=== PATIENT | female | born 1970 | race Caucasian/White ===

== ENCOUNTER 2016-10-22 15:03 | Emergency (ER) | payer MEDICARE ==
[~2016-10-22] VITALS: Ht 157.5 cm; Wt 123.7 kg
[~2016-10-22 15:03] MED LIST: ALBU18HF IH; ALPR1TAB2 PO; ASPI-630 PO; ATOR40TA59 PO; BISO5TAB2 PO; BUPR100T6 PO; CYAN10002 IM; DILT240C2 PO; FISH12002 PO; FLUT16SP21 NS; FLUT1DIS IH; GLIM1TAB PO; HYDROCORTISONE AD; LEVO125T5 PO; LEVO1TBD5 PO; LIDO700A4 TP; LORA10TA3 PO; MELO15TA23 PO; METF10002 PO; METH-37 PO; NEOMYCIN AD; OXYB5TAB7 PO; OXYC10TA PO; PANT40TA3 PO; PARO40TA3 PO; POLYMYXIN B AD
[2016-10-22 15:41] LABS: BASO # 0.1 x10^3/uL (0.0-0.2); BASO % 1 % (0-3); EOS # 0.1 x10^3/uL (0.0-0.7); EOS % 1 % (0-3); HEMATOCRIT 38.6 % (36.0-47.0); HEMOGLOBIN 13.1 g/dL (12.0-15.5); LYMPH # 2.9 x10^3/uL (1.0-4.8); LYMPH % 30 % (24-48); MEAN CORPUSCULAR HEMOGLOBIN 30 pg (25-35); MEAN CORPUSCULAR HGB CONC 34 g/dL (31-37); MEAN CORPUSCULAR VOLUME 89 fL (79-100); MONO # 0.4 x10^3/uL (0.0-1.1); MONO % 4 % (0-9); NEUT # 6.4 x10^3uL (1.8-7.7); NEUT % 65 % (31-73); PLATELET COUNT 379 x10^3/uL (140-400); RED BLOOD COUNT 4.36 x10^6/uL (3.50-5.40); RED CELL DISTRIBUTION WIDTH 13.3 % (11.5-14.5); WHITE BLOOD COUNT 9.9 x10^3/uL (4.0-11.0)
[2016-10-22 15:45] LABS: CALCIUM 8.6 mg/dL (8.5-10.1); CREATININE 0.5 mg/dL (0.6-1.0); GFR 132.2; POTASSIUM 3.4 mmol/L (3.5-5.1)
--- NOTE | 2016-10-22 16:37 | PHYS DOC ---
Past History Past Medical History: Anxiety, Asthma, Diabetes, GERD, High Cholesterol, Hypothyroid, Other Past Surgical History: Other Alcohol Use: None Drug Use: None Adult General Chief Complaint Chief Complaint: WOUND CHECK HPI HPI 46-year-old female presenting to the emergency department today after accidentally getting wedged in the toilet seat during transfer from her wheelchair to the toilet seat. After getting stuck she called paramedics. On arrival they saw small amount of blood on the seat and was concerned so they had her brought down here for medical evaluation. The patient did not fall she does not have any pain. She does not have a history of GI bleeding. She does have sores on her bottom that she believes probably caused this blood that the paramedics saw. Onset today. Location generalized. Duration intermittent. No alleviating or exacerbating factors. No specific timing. Review of systems was negative for chest pain shortness of breath abdominal pain nausea vomiting diarrhea. She denies fevers or chills. Pertinent physical exam findings showed a nontoxic normal-appearing individual. On evaluation the patient's buttocks there is chronic wound in the buttocks region from poor hygiene likely contact dermatitis. There is mild bleeding from this. Otherwise the patient's extremities are nontender head is atraumatic neck is nontender. Normal range of motion of the neck. ED course: 46-year-old female presenting to the emergency department today after getting stuck trying to get on the toilet seat. Vital signs afebrile normal blood pressure normal heart rate. Patient is well-appearing. Pertinent physical exam strong no traumatic injury. Bleeding likely secondary to her contact dermatitis from poor hygiene. Abdomen is soft and nontender. I recommended the patient follow up with her doctor over the next day or 2 or to return to the emergency department for worsening symptoms. They were to return if their symptoms worsened or if they were concerned for any reason. Face-to- face discharge instructions and return precautions were given. Patient's questions were answered to their satisfaction. Patient is comfortable plan. Review of Systems Review of Systems Constitutional: Denies fever or chills [] Eyes: Denies change in visual acuity, redness, or eye pain [] HENT: Denies nasal congestion or sore throat [] Respiratory: Denies cough or shortness of breath [] Cardiovascular: No additional information not addressed in HPI [] GI: Denies abdominal pain, nausea, vomiting, bloody stools or diarrhea [] : Denies dysuria or hematuria [] Musculoskeletal: Denies back pain or joint pain [] Integument: Denies rash or skin lesions [] Neurologic: Denies headache, focal weakness or sensory changes [] Endocrine: Denies polyuria or polydipsia [] Allergies Allergies Allergies Coded Allergies Type Severity Reaction Last Updated Verified Beta-Blockers (Beta-Adrenergic Bloc Allergy Intermediate Unknown 04/01/16 Yes Sulfa (Sulfonamide Antibiotics) Allergy Intermediate Unknown 04/01/16 Yes carbamazepine Allergy Intermediate Unknown 04/01/16 Yes ciprofloxacin Allergy Intermediate Unknown 04/01/16 Yes diphenhydramine Allergy Intermediate Unknown 08/24/15 Yes perflutren Allergy Intermediate Unknown 08/24/15 Yes tioconazole Allergy Intermediate Unknown 08/24/15 Yes vancomycin Allergy Unknown 03/27/16 Yes Physical Exam Physical Exam Constitutional: Well developed, well nourished, no acute distress, non-toxic appearance. HENT: Normocephalic, atraumatic, bilateral external ears normal, oropharynx moist, no oral exudates, nose normal. [] Eyes: PERRLA, EOMI, conjunctiva normal, no discharge. [] Neck: Normal range of motion, no tenderness, supple, no stridor. Cardiovascular:Heart rate regular rhythm, no murmur [] Lungs & Thorax: Bilateral breath sounds clear to auscultation Abdomen: Soft nontender abdomen without rebound tenderness or guarding present. Negative McBurneys point. Negative Degroot sign. No ecchymosis present. Skin: See above Back: No tenderness, no CVA tenderness. [] Extremities: No tenderness, no cyanosis, no clubbing, ROM intact, no edema. [] Neurologic: Alert and oriented X 3, normal motor function, normal sensory function, no focal deficits noted. Psychologic: Affect normal, judgement normal, mood normal. [] Current Patient Data Vital Signs Vital Signs Date Time Temp Pulse Resp B/P (MAP) Pulse Ox O2 Delivery O2 Flow Rate FiO2 10/22/16 15:10 98.3 89 19 97 Room Air Lab Results Laboratory Tests Test 10/22/16 15:28 White Blood Count 9.9 x10^3/uL (4.0-11.0) Red Blood Count 4.36 x10^6/uL (3.50-5.40) Hemoglobin 13.1 g/dL (12.0-15.5) Hematocrit 38.6 % (36.0-47.0) Mean Corpuscular Volume 89 fL (79-100) Mean Corpuscular Hemoglobin 30 pg (25-35) Mean Corpuscular Hemoglobin Concent 34 g/dL (31-37) Red Cell Distribution Width 13.3 % (11.5-14.5) Platelet Count 379 x10^3/uL (140-400) Neutrophils (%) (Auto) 65 % (31-73) Lymphocytes (%) (Auto) 30 % (24-48) Monocytes (%) (Auto) 4 % (0-9) Eosinophils (%) (Auto) 1 % (0-3) Basophils (%) (Auto) 1 % (0-3) Neutrophils # (Auto) 6.4 x10^3uL (1.8-7.7) Lymphocytes # (Auto) 2.9 x10^3/uL (1.0-4.8) Monocytes # (Auto) 0.4 x10^3/uL (0.0-1.1) Eosinophils # (Auto) 0.1 x10^3/uL (0.0-0.7) Basophils # (Auto) 0.1 x10^3/uL (0.0-0.2) Maternal Serum HCG Beta Subunit 1 mIU/mL (0-6) Sodium Level 141 mmol/L (136-145) Potassium Level 3.4 mmol/L (3.5-5.1) L Chloride Level 104 mmol/L (98-107) Carbon Dioxide Level 25 mmol/L (21-32) Anion Gap 12 (6-14) Blood Urea Nitrogen 17 mg/dL (7-20) Creatinine 0.5 mg/dL (0.6-1.0) L Estimated GFR (Cockcroft-Gault) 132.2 Glucose Level 173 mg/dL (70-99) H Calcium Level 8.6 mg/dL (8.5-10.1) EKG EKG [] Radiology/Procedures Radiology/Procedures [] Course & Med Decision Making Course & Med Decision Making Pertinent Labs and Imaging studies reviewed. (See chart for details) [] Dragon Disclaimer Dragon Disclaimer This chart was dictated in whole or in part using Voice Recognition software in a busy, high-work load, and often noisy Emergency Department environment. It may contain unintended and wholly unrecognized errors or omissions. Departure Departure: Impression: Primary Impression: Contact dermatitis Disposition: 01 HOME, SELF-CARE Condition: STABLE Referrals: LAVERNE REAVES MD (PCP) Patient Instructions: Contact Dermatitis, [id number] Additional Instructions: Thank you for allowing us to participate in your care today. Followup with your primary care physician in 3 days if your symptoms do not improve. If you do not have a primary care provider you can ask for a list of our primary care providers. Return to the emergency department you have any new or concerning findings. This should be evaluated by the primary care physician and any necessary consulting services for continued management within a few days after discharge. Return to emergency room if you have any new or concerning symptoms including but not limited to fever, chills, nausea, vomiting, intractable pain, any new rashes, chest pain, shortness of air, uncontrolled bleeding, difficulty breathing, and/or vision loss. DANE JORDAN MD October 22, 2016 16:37
[2016-10-22 17:00] VITALS: BP 136/72
== END 2016-10-22 17:13 | disposition home or self-care (01) ==
LOC: ER 15:03
DX: L25.9 Unspecified contact dermatitis, unspecified cause (principal); E11.9 Type 2 diabetes mellitus without complications; J45.909 Unspecified asthma, uncomplicated; E78.00 Pure hypercholesterolemia, unspecified; E03.9 Hypothyroidism, unspecified; K21.9 Gastro-esophageal reflux disease without esophagitis; Z88.1 Allergy status to other antibiotic agents; Z88.2 Allergy status to sulfonamides; Z88.8 Allergy status to other drugs, medicaments and biological substances
CPT/HCPCS: 36415; 80048; 84702; 85027; 99284

== ENCOUNTER 2016-12-16 11:18 | Emergency (ER) | payer MEDICARE ==
[~2016-12-16] VITALS: Ht 157.5 cm; Wt 121.6 kg
--- NOTE | 2016-12-16 11:57 | PHYS DOC ---
General Chief Complaint: MECHANICAL FALL Stated Complaint: FALL Time Seen by MD: 11:20 Source: patient, EMS, old records Exam Limitations: no limitations Problems: History of Present Illness Initial Comments Patient is a 46-year-old female brought to the emergency department with her service dog by EMS initially due to a fall and related possible injuries. When she is in the department she does have other issues should like to discuss as follows: -Fall out of bed with right rib pain: Patient states that she has incontinence issues and she keeps pads on her bed. She says sometimes they slide across one another and that is what happened this morning. Immediately prior to arrival she says she slid off the edge of the bed landing on a wood floor on her right rib cage. She denies right hip or right shoulder pain she also denies head trauma loss of consciousness headache or neck pain. She localizes the discomfort to the right lateral rib cage in general denies associated difficulty breathing. Pain is diffuse she cannot localize any bony point tenderness. -Asthma: Pt moved residences recently, her caregiver busy today and pt could not find her neb machine. With the increased humidity and ask her asthma symptoms have flared somewhat and she's had mild nighttime nonproductive cough. No shortness of breath or dyspnea on exertion she's been using inhalers and thinks she has someone to help her find the nebulizer later today. -Itching: Pt has h/o bullous pemphigous, states when symptoms flare she itches initially. She is certain that is cause for her itching, denies new meds/ products exposures. No face/throat swelling. Complains of whole body itching, she refuses Benadryl as she says it makes her crazy but steroids typically resolve these symptoms. Timing/Duration: 1 hour Severity: moderate Modifying Factors: worse with movement, improves with rest Associated Symptoms: cough, malaise, other Allergies: Coded Allergies: Beta-Blockers (Beta-Adrenergic Bloc (Verified Allergy, Intermediate, Unknown, 04/01/16) Sulfa (Sulfonamide Antibiotics) (Verified Allergy, Intermediate, Unknown, 04/01/16) carbamazepine (Verified Allergy, Intermediate, Unknown, 04/01/16) ciprofloxacin (Verified Allergy, Intermediate, Unknown, 04/01/16) diphenhydramine (Verified Allergy, Intermediate, Unknown, 08/24/15) perflutren (Verified Allergy, Intermediate, Unknown, 08/24/15) tioconazole (Verified Allergy, Intermediate, Unknown, 08/24/15) vancomycin (Verified Allergy, Unknown, 03/27/16) Past Medical History Medical History: other (anxiety, asthma, diabetes, GERD, hyperlipidemia, hypothyroidism, cerebral palsy, bullous pemphigus, PSVT, obstructive sleep apnea , chronic pain) Surgical History: noncontributory Family History Significant Family History: no pertinent family hx Social History Smoker: non-smoker Alcohol: none Drugs: none Review of Systems Constitutional: denies chills, denies diaphoresis, denies fever, denies malaise Respiratory: cough, denies shortness of breath, wheezing Cardiovascular: denies chest pain, denies palpitations, denies syncope Gastrointestinal: denies abdominal pain, denies diarrhea, denies nausea, denies vomiting Genitourinary: denies dysuria, denies frequency, denies hematuria Musculoskeletal: see HPI, denies back pain, denies joint swelling, denies neck pain Psychiatric/Neurological: see HPI, denies headache, denies paresthesia, denies pre-existing deficit, denies seizure Hematologic/Lymphatic: denies blood clots, denies easy bleeding, denies easy bruising Physical Exam General Appearance: no apparent distress, obese Eyes: bilateral eye normal inspection, bilateral eye PERRL, bilateral eye EOMI Ear, Nose, Throat: hearing grossly normal, normal ENT inspection, normal pharynx (head is normocephalic atraumatic), other (no oral pharyngeal soft tissue swelling the airway is patent) Neck: non-tender, full range of motion, supple Respiratory: normal breath sounds, no respiratory distress, other (mild diffuse right sided rib cage tenderness without focality, no focal bony point tenderness, no paradoxical movement, swelling or ecchymosis.) Cardiovascular: normal peripheral pulses, regular rate, rhythm Gastrointestinal: non tender, soft Back: no CVA tenderness, no vertebral tenderness Extremities: non-tender, normal inspection Neurologic/Psychiatric: principal developer II-XII nml as tested, no motor/sensory deficits, alert, normal mood/affect, oriented x 3 Skin: normal color, warm/dry Orders, Labs, Meds PATIENT: CHANDLER CHEATHAM ACCOUNT: [id number] : 1970 LOCATION: ER AGE: 46 SEX: F EXAM STATUS: REG ER ORD. PHYSICIAN: MI ISLAS DO REASON: fall, right rib pain PROCEDURE: RIBS RIGHT AND PA CHEST RIBS RIGHT AND PA CHEST Clinical Indication: fall, right rib pain Comparison: Chest radiograph dated 01/26/2016 Findings: The patient rotated to the right. Low lung volume. No focal consolidations. Normal pulmonary vasculature. No pleural effusion or pneumothorax. The cardiomediastinal silhouette is normal. The great vessels of the thorax are normal. No acute osseous abnormality. No displaced rib fracture. IMPRESSION: 1. No acute cardiopulmonary process. 2. No displaced rib fracture. DICTATED AND SIGNED BY: YAJAIRA PAREDES MD DATE: 12/16/16 [id number] CC: LAVERNE NUÑEZ MD; MI ISLAS DO ~ I discussed x-ray findings with the patient. She has no new or changing symptoms and has a friend coming to help her locate her nebulizer at home. Her itching is improved with Solu-Medrol and she is ready to go home. The treatment plan was discussed with her and her questions were answered. Departure Time of Disposition: 12:45 Disposition: 01 HOME, SELF-CARE Diagnosis: fall, chest contusion, bullous pemphigus Condition: GOOD Patient Instructions: Chest Contusion, [id number], Fall Prevention and Home Safety, [id number], RICE - Routine Care for Injuries, [id number] Additional Instructions: RICE, see handout. Rest, activity as tolerated. Begin using home nebulizer/meds as prescribed. Continue current meds. Avoid heat to reduce itching. Rx: prednisone Follow up with Dr Nuñez this week as discussed. Return to ED with new or changing symptoms. MI ISLAS DO Dec 16, 2016 11:57
[2016-12-16] MEDS ORDERED: IPRATRPIUM/ALBUTEROL 0.5/2.5MG 3 ML NEBU. NEB ONE (12:10)
[2016-12-16] MEDS ORDERED: methylPREDNISolone SOD SUCC PF 125 MG/2 ML VIAL. IM ONE (12:10)
--- NOTE | 2016-12-16 12:41 | RAD ---
RIBS RIGHT AND PA CHEST Clinical Indication: fall, right rib pain Comparison: Chest radiograph dated 01/26/2016 Findings: The patient rotated to the right. Low lung volume. No focal consolidations. Normal pulmonary vasculature. No pleural effusion or pneumothorax. The cardiomediastinal silhouette is normal. The great vessels of the thorax are normal. No acute osseous abnormality. No displaced rib fracture. IMPRESSION: 1. No acute cardiopulmonary process. 2. No displaced rib fracture.
[2016-12-16 13:09] VITALS: BP 132/100
== END 2016-12-16 13:10 | disposition home or self-care (01) ==
LOC: ER 11:18
DX: S20.211A Contusion of right front wall of thorax, initial encounter (principal); L10.89 Other pemphigus; E11.9 Type 2 diabetes mellitus without complications; J45.909 Unspecified asthma, uncomplicated; K21.9 Gastro-esophageal reflux disease without esophagitis; E78.5 Hyperlipidemia, unspecified; E03.9 Hypothyroidism, unspecified; G80.9 Cerebral palsy, unspecified; G47.33 Obstructive sleep apnea (adult) (pediatric); G89.29 Other chronic pain; Z88.2 Allergy status to sulfonamides; Z88.1 Allergy status to other antibiotic agents; Z88.8 Allergy status to other drugs, medicaments and biological substances; W06.XXXA Fall from bed, initial encounter; Y93.89 Activity, other specified; Y99.8 Other external cause status; Y92.89 Other specified places as the place of occurrence of the external cause
CPT/HCPCS: 71101; 94640; 96372; 99284; J2930; J7620

== ENCOUNTER 2017-02-04 17:58 | Inpatient (IN) | payer MEDICARE ==
[~2017-02-04] VITALS: Ht 157.5 cm; Wt 121.6 kg
--- NOTE | 2017-02-04 18:36 | ED.ADGEN ---
Past History Past Medical History: Anemia, Anxiety, Asthma, Depression, Diabetes, GERD, High Cholesterol, Hypothyroid, Other Past Surgical History: Other Alcohol Use: None Drug Use: None Adult General Chief Complaint Chief Complaint pain in mid back and lumbar back after fall HPI HPI Patient is a 46] year old [female who presents with pain in mid back and lumbar back after fall. she has cerebral palsy and has been getting weaker. she transfers on her own. she fell to her buttock when she fell. she felt like her back "got abby". she has multiple bulging disks in her back. she is to start physical therapy and rehab tomorrow. she has not been ill. no n/v/d. no dysuria, no fever. she has called fire out twice each day to help her get back in chair. Review of Systems Review of Systems Constitutional: Denies fever or chills [] Eyes: Denies change in visual acuity, redness, or eye pain [] HENT: Denies nasal congestion or sore throat [] Respiratory: Denies cough or shortness of breath [] Cardiovascular: No additional information not addressed in HPI [] GI: Denies abdominal pain, nausea, vomiting, bloody stools or diarrhea [] : Denies dysuria or hematuria [] Musculoskeletal: Denies back pain or joint pain [] Integument: Denies rash or skin lesions [] Neurologic: Denies headache, focal weakness or sensory changes [] Endocrine: Denies polyuria or polydipsia [] Current Medications Current Medications Current Medications Medications (Trade) Dose Ordered Sig/Daniel Start Time Stop Time Status Last Admin Dose Admin Fentanyl Citrate (Fentanyl 2ml Vial) 50 mcg PRN Q2HR PRN 02/04/17 21:30 02/05/17 21:29 Allergies Allergies Allergies Coded Allergies Type Severity Reaction Last Updated Verified Beta-Blockers (Beta-Adrenergic Bloc Allergy Intermediate Unknown 04/01/16 Yes Sulfa (Sulfonamide Antibiotics) Allergy Intermediate Unknown 04/01/16 Yes carbamazepine Allergy Intermediate Unknown 04/01/16 Yes ciprofloxacin Allergy Intermediate Unknown 04/01/16 Yes diphenhydramine Allergy Intermediate Unknown 08/24/15 Yes perflutren Allergy Intermediate Unknown 08/24/15 Yes tioconazole Allergy Intermediate Unknown 08/24/15 Yes vancomycin Allergy Unknown 03/27/16 Yes Physical Exam Physical Exam Constitutional: Well developed, well nourished, no acute distress, non-toxic appearance. [] HENT: Normocephalic, atraumatic, bilateral external ears normal, oropharynx moist, no oral exudates, nose normal. [] Eyes: PERRLA, EOMI, conjunctiva normal, no discharge. [] Neck: Normal range of motion, no tenderness, supple, no stridor. [] Cardiovascular:Heart rate regular rhythm, no murmur [] Lungs & Thorax: Bilateral breath sounds clear to auscultation [] Abdomen: Bowel sounds normal, soft, no tenderness, no masses, no pulsatile masses. [] Skin: Warm, dry, no erythema, no rash. [] Back: tender thoracic at t6-t8, entire lumbar spine. Extremities: No tenderness, no cyanosis, no clubbing, pt has abrasions to bilat patellas.no crepitus palpated. minimal movement to bilat LE due to CP, some movement to RUE, this is baseline. full ROM of LUE without pain Neurologic: Alert and oriented X 3, baseline motor function Psychologic: Affect normal, judgement normal, mood normal. [] Current Patient Data Vital Signs Vital Signs Date Time Temp Pulse Resp B/P (MAP) Pulse Ox O2 Delivery O2 Flow Rate FiO2 02/04/17 18:00 98.2 78 18 99 Room Air Lab Results Laboratory Tests Test 02/04/17 20:52 White Blood Count 10.5 x10^3/uL (4.0-11.0) Red Blood Count 4.42 x10^6/uL (3.50-5.40) Hemoglobin 13.2 g/dL (12.0-15.5) Hematocrit 39.4 % (36.0-47.0) Mean Corpuscular Volume 89 fL (79-100) Mean Corpuscular Hemoglobin 30 pg (25-35) Mean Corpuscular Hemoglobin Concent 34 g/dL (31-37) Red Cell Distribution Width 13.7 % (11.5-14.5) Platelet Count 338 x10^3/uL (140-400) Neutrophils (%) (Auto) 64 % (31-73) Lymphocytes (%) (Auto) 29 % (24-48) Monocytes (%) (Auto) 4 % (0-9) Eosinophils (%) (Auto) 2 % (0-3) Basophils (%) (Auto) 1 % (0-3) Neutrophils # (Auto) 6.8 x10^3uL (1.8-7.7) Lymphocytes # (Auto) 3.0 x10^3/uL (1.0-4.8) Monocytes # (Auto) 0.5 x10^3/uL (0.0-1.1) Eosinophils # (Auto) 0.2 x10^3/uL (0.0-0.7) Basophils # (Auto) 0.1 x10^3/uL (0.0-0.2) Sodium Level 140 mmol/L (136-145) Potassium Level 3.5 mmol/L (3.5-5.1) Chloride Level 104 mmol/L (98-107) Carbon Dioxide Level 27 mmol/L (21-32) Anion Gap 9 (6-14) Blood Urea Nitrogen 9 mg/dL (7-20) Creatinine 0.7 mg/dL (0.6-1.0) Estimated GFR (Cockcroft-Gault) 89.7 BUN/Creatinine Ratio 13 (6-20) Glucose Level 99 mg/dL (70-99) Calcium Level 9.5 mg/dL (8.5-10.1) Total Bilirubin 0.7 mg/dL (0.2-1.0) Aspartate Amino Transferase (AST) 87 U/L (15-37) H Alanine Aminotransferase (ALT) 87 U/L (14-59) H Alkaline Phosphatase 78 U/L (46-116) Total Protein 6.9 g/dL (6.4-8.2) Albumin 3.5 g/dL (3.4-5.0) Albumin/Globulin Ratio 1.0 (1.0-1.7) EKG EKG [] Radiology/Procedures Radiology/Procedures CT T and L spine are neg for fracture[] Course & Med Decision Making Course & Med Decision Making Pertinent Labs and Imaging studies reviewed. (See chart for details) Pt and her nurse feel she is too weak to manage transfers on her own at home. pt is obese and her nurse helps her. pt lives alone. she is to be admitted to [facility] on . will admit until she can transfer to rehab Final Impression Final Impression weakness multiple falls patellar abrasions inability to care for self[] Problems: Dragon Disclaimer Dragon Disclaimer This electronic medical record was generated, in whole or in part, using a voice recognition dictation system. KATHRYN MOULTON MD Feb 04, 2017 18:36
--- NOTE | 2017-02-04 19:35 | RAD ---
CT scan of the lumbar spine without contrast 02/04/2017 CLINICAL HISTORY: Low back pain after fall from bed. Technique: Unenhanced, contiguous, 0.625 mm axial sections were obtained through the lumbar spine. 3 mm reconstructed sagittal, axial and coronal images were obtained. One or more of the following individualized dose reduction techniques were utilized for this study: 1. Automated exposure control. 2. Adjustment of the mA and/or kV according to patient size. 3. Use of iterative reconstruction technique. FINDINGS: Very mild S-shaped curvature of the thoracolumbar spine is seen on the sagittal and coronal reconstructed images. Degenerative changes consisting of disc space narrowing, vacuum disc phenomenon, subchondral sclerosis and mild to moderate anterior and posterior vertebral body osteophyte formation are seen involving predominantly the L4-5 and L5-S1 disc spaces. Mild atherosclerotic calcification of the abdominal aorta is seen. No fracture or subluxation of the lumbar vertebrae seen. The changes of degenerative disc disease are seen involving the lumbar spine. These consist of mild to moderate generalized disc bulges, degenerative changes involving the facet joints and mild to moderate ligamentum flavum hypertrophy. These findings results in mild central spinal canal stenosis with mild to moderate bilateral neural foraminal stenosis at L4-5 and mild to moderate left greater than right neural foraminal stenosis at L5-S1. IMPRESSION: No fracture or subluxation of the lumbar vertebrae is seen. Electronically signed by: Jaspal Andrade MD (02/04/2017 7:33 PM) [id number]
--- NOTE | 2017-02-04 20:02 | RAD ---
CT scan of the thoracic spine without contrast 02/04/2017 CLINICAL HISTORY: Mid back pain post fall from bed. TECHNIQUE: Unenhanced, contiguous, 0.625 mm axial sections were obtained through the thoracic spine. 3 mm reconstructed sagittal and coronal and 2 mm reconstructed axial images of the thoracic spine were obtained. One or more of the following individualized dose reduction techniques were utilized for this study: 1. Automated exposure control. 2. Adjustment of the mA and/or kV according to patient size. 3. Use of iterative reconstruction technique. FINDINGS: Sagittal and coronal reconstructed images demonstrate very mild S-shaped curvature of the thoracolumbar spine. Degenerative changes are seen throughout the thoracic disc spaces consisting of varying degrees of disc space narrowing, vertebral endplate sclerosis and mild to moderate anterior vertebral body osteophyte formation along with degenerative changes involving the facet joints. No fracture or subluxation of the thoracic vertebrae is seen. IMPRESSION: No fracture or subluxation of the thoracic vertebrae is seen. Electronically signed by: Jaspal Andrade MD (02/04/2017 7:59 PM) [id number]
[2017-02-04 21:27] LABS: BASO # 0.1 x10^3/uL (0.0-0.2); BASO % 1 % (0-3); EOS # 0.2 x10^3/uL (0.0-0.7); EOS % 2 % (0-3); HEMATOCRIT 39.4 % (36.0-47.0); HEMOGLOBIN 13.2 g/dL (12.0-15.5); LYMPH % 29 % (24-48); MEAN CORPUSCULAR HEMOGLOBIN 30 pg (25-35); MEAN CORPUSCULAR HGB CONC 34 g/dL (31-37); MEAN CORPUSCULAR VOLUME 89 fL (79-100); MONO # 0.5 x10^3/uL (0.0-1.1); MONO % 4 % (0-9); NEUT # 6.8 x10^3uL (1.8-7.7); NEUT % 64 % (31-73); PLATELET COUNT 338 x10^3/uL (140-400); RED BLOOD COUNT 4.42 x10^6/uL (3.50-5.40); RED CELL DISTRIBUTION WIDTH 13.7 % (11.5-14.5); WHITE BLOOD COUNT 10.5 x10^3/uL (4.0-11.0)
[2017-02-04] MEDS ORDERED: fentaNYL PF 100 MCG/2 ML VIAL IV PRN (21:30)
[2017-02-04 21:34] LABS: ALBUMIN 3.5 g/dL (3.4-5.0); CALCIUM 9.5 mg/dL (8.5-10.1); CREATININE 0.7 mg/dL (0.6-1.0); GFR 89.7; POTASSIUM 3.5 mmol/L (3.5-5.1); TOTAL BILIRUBIN 0.7 mg/dL (0.2-1.0); TOTAL PROTEIN 6.9 g/dL (6.4-8.2)
[2017-02-04] MEDS ORDERED: fentaNYL PF 100 MCG/2 ML VIAL IM PRN (22:45)
[2017-02-04 22:53] LABS: BILIRUBIN,URINE NEG (NEG); CLARITY,URINE HAZY; COLOR,URINE YELLOW; GLUCOSE,URINE NEG (NEG)
[2017-02-04 22:54] LABS: BACTERIA,URINE MANY /HPF (0-FEW); NITRITE,URINE POS (NEG); RBC,URINE 0 /HPF (0-2); SQUAMOUS EPITHELIAL CELL,UR OCC /LPF; UROBILINOGEN,URINE 0.2 mg/dL (0.2 mg/dL)
[2017-02-04] MEDS ORDERED: cefTRIAXone IM 1 GM VIAL IM ONE (23:30)
[2017-02-04 23:45] VITALS: BP 150/86
[2017-02-05] MEDS: oxyCODONE ER 10 MG TAB.ER.12H PO PRN ×2 (00:54→12:19)
[2017-02-05] MEDS: METHOCARBAMOL 500 MG TABLET PO PRN ×2 (03:03→20:42)
[2017-02-05 06:10] VITALS: BP 141/87
[2017-02-05] MEDS ORDERED: DILT240C66 PO (13:21)
[2017-02-05] MEDS ORDERED: CARV6.252 PO (13:21)
[2017-02-05] MEDS ORDERED: PIOG30TA41 PO (13:21)
[2017-02-05] MEDS ORDERED: ALBUTEROL SULFATE 8GM INHALER. IH PRN (15:45)
[2017-02-05 15:55] VITALS: BP 143/90
[2017-02-05] MEDS ORDERED: ALBUTEROL SULFATE 2.5 MG/3 ML NEBU. NEB PRN (16:15)
[2017-02-05] MEDS: GLIMEPIRIDE 4 MG TABLET PO SCH (17:00)
[2017-02-05] MEDS: CARVEDILOL 6.25 MG TABLET PO SCH (17:06)
[2017-02-05] MEDS: metFORMIN 500 MG TABLET PO SCH (17:07)
--- NOTE | 2017-02-05 18:59 | HP ---
ADMIT DATE: 02/05/2017 HISTORY OF PRESENT ILLNESS: The patient is a 46-year-old female patient with cerebral palsy who was brought to the Emergency Room with a complaint of pain in the back and lumbar back after a fall. She apparently has cerebral palsy and has been getting weaker. She transferred on her own and she fell onto her buttock and she felt like her back has got ____. She has multiple bulging disks in her back. She is to start physical therapy and rehab at [facility]; however, she has fallen about 11 times in the last few weeks and she has been so weak that she is unable to take care of herself and was admitted for pain management and hopefully transfer her to the [facility] [place]. The patient denied any other complaint and particularly denied any chills, rigors, or fever. Denied any nausea, vomiting and diarrhea. Denied any dysuria, frequency or hematuria. She has called the fire department twice yesterday to help her get back in her chair. She was evaluated in the Emergency Room and has had a CT scan of the thoracic and lumbar spine, showed no fracture or subluxation of the thoracic vertebra and no fracture or subluxation of her lumbar vertebrae seen and was admitted for pain management. PAST MEDICAL HISTORY: She has hyperlipidemia, hypertension, vitamin B12 deficiency, type 2 diabetes, hypothyroidism, overactive bladder, gastroesophageal reflux disease as well as bronchial asthma and obviously cerebral palsy. PAST SURGICAL HISTORY: Significant for multiple surgeries ____ within the age 1 and 7 and also in the year 1999. ALLERGIES: BETABLOCKER, SULFA, CARBAMAZEPINE, CIPROFLOXACIN. MEDICATIONS: She is currently on following medications: Albuterol sulfate 1 puff every 4-6 hours, alprazolam or Xanax 1 mg twice a day, aspirin 81 mg once a day, atorvastatin calcium 40 mg at bedtime, Wellbutrin 100 mg once a day, carvedilol 6.25 mg twice a day with meals, cyanocobalamin or vitamin B12 1000 mcg/mL intramuscular once a month. She is on diltiazem 240 mg once a day, Flonase 1 spray to each nostril twice a day, fluticasone/ salmeterol or Advair Diskus 500/50 one inhalation twice a day, glimepiride 4 mg b.i.d., levothyroxine sodium 250 mcg once a day, Lidoderm patch applied topically to the lower lumbar area on for 12 hours and off for 12, loratadine 10 mg once a day, meloxicam 15 mg once a day, metformin 1000 mg p.o. b.i.d., methocarbamol or Robaxin 1000 mg every 8 hours as needed, oxybutynin chloride 5 mg, she takes 2 tablets daily, oxycodone 10 mg 2 tablets twice a day, Protonix 40 mg once a day, paroxetine 40 mg once a day, and pioglitazone or Actos 30 mg once a day and hydrocortisone, neomycin, polymyxin 4 drops b.i.d. FAMILY HISTORY: She is the only child. Her mother at age of 63 due to complication of myasthenia gravis and bowel obstruction. She is estranged from her stepfather who is alive at age of 66 years. She does not know her biological father. SOCIAL HISTORY: She is single. She does not smoke. Drinks alcohol 6 times a year. 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 She has a caregiver that comes to the house, 3 hours per week. PHYSICAL EXAMINATION: GENERAL: On examining her, she was resting slightly propped up in bed, in no apparent respiratory distress, pale, but no jaundice, cyanosis, or thyromegaly. No jugular venous distention. No limb edema. VITAL SIGNS: His heart rate was 83, blood pressure was 113/71, temperature was 98.2, respiratory rate was 18 and oxygen saturation was 99% on room air. HEENT: Showed normocephalic, atraumatic. NECK: Supple. HEART: Showed normal first and second heart sounds with no gallop, rub or murmur. CHEST: Clear to auscultation. No crepitation or rhonchi. ABDOMEN: Distended, soft, nontender. NEUROLOGIC: She is awake, alert, responding appropriately. Cranial nerves intact. She is able to use her left upper extremity to much greater extent than the right upper extremity, which has fixed flexion deformity. She has paraplegia. She is mostly bed bound, wheelchair bound. LABORATORY DATA: On admission showed that her white cell count was 10,500, hemoglobin 13, hematocrit 39, MCV 89 and platelet count of 338,000 with normal manual differential. Her serum chemistry showed a serum sodium 140, potassium 3.5, chloride 104, bicarbonate 27, anion gap of 9, BUN 9, creatinine 0.7, estimated GFR was 90 mL per minute. Her glucose was 99, calcium was 9.5. Total bilirubin and alkaline phosphatase were normal. AST, ALT elevated. Her total protein was 6.9, albumin was 3.5. Her urinalysis showed the urine was yellow, hazy with a pH of 5.5, specific gravity 1.005. The urine was negative for protein, glucose, ketones, positive for nitrite. There is 1-4 WBCs and many bacteria. She did have a CT scan of the thoracic spine, which showed that she has ____ thoracolumbar spine degenerative changes are seen throughout the thoracic disk spaces consisting of varying degree of disk space narrowing, vertebral endplate sclerosis, mild to moderate anterior vertebral body osteophyte formation along with degenerative changes involving the facet joints and the same thing for the lumbar spine with no evidence of subluxation or fracture. ASSESSMENT AND PLAN: In summary, this is a 46-year-old female patient with cerebral palsy who has been falling multiple times. She has fallen about 11 times and patient was admitted for pain management and to eventually be admitted to [facility] on with the final impression of generalized weakness, multiple falls, patellar abrasions and inability to care for self. ALL LONG MD DR: THI/betzaida JOB#: [id number] / [id number]
[2017-02-05 20:29] VITALS: BP 115/76
[2017-02-05] MEDS: ALPRAZolam 0.5 MG TABLET PO SCH (20:42)
[2017-02-05] MEDS ORDERED: LIDOCAINE (700MG/PATCH) PATCH. TP SCH (21:00)
[2017-02-05] MEDS ORDERED: NON FORMULARY ITEM (Fluticasone/Salmeterol (Advair 100-50 Diskus) 1 EACH) IH SCH (21:00)
[2017-02-05] MEDS: BUDESONIDE 0.5 MG/2 ML NEBU NEB SCH (21:23)
[2017-02-05] MEDS: ALBUTEROL SULFATE 2.5 MG/3 ML NEBU. NEB SCH (21:23)
[2017-02-05 22:51] VITALS: BP 100/65
--- NOTE | 2017-02-06 04:38 | PN ---
DATE: 02/05/2017 SUBJECTIVE: The patient is resting slightly propped up in bed, in no apparent distress. She continued to have pain in her lower back; however, extensive imaging showed no evidence of subluxation or fracture. She has been weak and she is unable to care for herself and she is scheduled to be admitted tomorrow to [facility]. When I examined her today, she looked well and was clearly in no apparent respiratory distress. She was afebrile and hemodynamically stable. Her pain is well controlled. PLAN: I have reconciled all her medications. I will continue obviously with all her medications and will discharge her tomorrow to [facility]. ALL LONG MD DR: THI/betzaida JOB#: [id number] / [id number]
[2017-02-06] MEDS: oxyCODONE ER 10 MG TAB.ER.12H PO PRN (05:10)
[2017-02-06 05:55] VITALS: BP 127/77
[2017-02-06] MEDS ORDERED: LEVOTHYROXINE 125 MCG TABLET PO SCH (06:00)
[2017-02-06 06:51] LABS: BASO % 1 % (0-3); EOS # 0.2 x10^3/uL (0.0-0.7); EOS % 3 % (0-3); HEMATOCRIT 36.9 % (36.0-47.0); HEMOGLOBIN 12.4 g/dL (12.0-15.5); LYMPH % 41 % (24-48); MEAN CORPUSCULAR HEMOGLOBIN 30 pg (25-35); MEAN CORPUSCULAR HGB CONC 34 g/dL (31-37); MEAN CORPUSCULAR VOLUME 88 fL (79-100); MONO # 0.4 x10^3/uL (0.0-1.1); MONO % 6 % (0-9); NEUT # 3.6 x10^3uL (1.8-7.7); NEUT % 50 % (31-73); PLATELET COUNT 332 x10^3/uL (140-400); RED BLOOD COUNT 4.19 x10^6/uL (3.50-5.40); RED CELL DISTRIBUTION WIDTH 13.7 % (11.5-14.5); WHITE BLOOD COUNT 7.2 x10^3/uL (4.0-11.0)
[2017-02-06 07:04] LABS: ALBUMIN/GLOBULIN RATIO 0.9 (1.0-1.7); CALCIUM 9.2 mg/dL (8.5-10.1); CREATININE 0.6 mg/dL (0.6-1.0); GFR 107.2; POTASSIUM 3.4 mmol/L (3.5-5.1); TOTAL BILIRUBIN 0.5 mg/dL (0.2-1.0); TOTAL PROTEIN 6.4 g/dL (6.4-8.2)
[2017-02-06] MEDS ORDERED: OXYBUTYNIN CHLORIDE 5 MG TABLET PO SCH (09:00)
[2017-02-06] MEDS ORDERED: PANTOPRAZOLE 40 MG TABLET. PO SCH (09:00)
[2017-02-06] MEDS ORDERED: buPROPion 100 MG TABLET PO SCH (09:00)
[2017-02-06] MEDS ORDERED: FLUTICASONE 50MCG/NASAL SPRAY 16GM BOTTLE. NS SCH (09:00)
[2017-02-06] MEDS ORDERED: ATORVASTATIN CALCIUM 20 MG TABLET PO SCH (09:00)
[2017-02-06] MEDS ORDERED: PARoxetine 20 MG TABLET PO SCH (09:00)
[2017-02-06] MEDS ORDERED: CETIRIZINE HCL 10 MG TABLET PO SCH (09:00)
[2017-02-06] MEDS ORDERED: PIOGLITAZONE 15 MG TABLET. PO SCH (09:00)
[2017-02-06] MEDS ORDERED: ASPIRIN 81 MG TAB.CHEW PO SCH (09:00)
[2017-02-06] MEDS ORDERED: MELOXICAM 15 MG TABLET. PO SCH (09:00)
[2017-02-06] MEDS: CARVEDILOL 6.25 MG TABLET PO SCH (10:40)
[2017-02-06] MEDS: GLIMEPIRIDE 4 MG TABLET PO SCH (10:43)
[2017-02-06] MEDS: metFORMIN 500 MG TABLET PO SCH (10:44)
[2017-02-06] MEDS: ALPRAZolam 0.5 MG TABLET PO SCH (10:45)
[2017-02-06] MEDS: METHOCARBAMOL 500 MG TABLET PO PRN (10:53)
[2017-02-06 11:03] VITALS: BP 100/65
[2017-02-06] MEDS: BUDESONIDE 0.5 MG/2 ML NEBU NEB SCH (11:50)
[2017-02-06] MEDS: ALBUTEROL SULFATE 2.5 MG/3 ML NEBU. NEB SCH ×2 (11:50→11:51)
[2017-02-06 21:11] LABS: HEMOGLOBIN A1C 7.3 % (4.8-5.6)
--- NOTE | 2017-02-06 22:22 | DS ---
DATE OF DISCHARGE: 02/06/2017 HOSPITAL COURSE: The patient is a 46-year-old female patient who was admitted through the Emergency Room with a complaint of pain in her lower back after a fall. She apparently has cerebral palsy and has been getting weaker. She normally transferred on her own and she fell onto her buttock and she felt like her back has got abby. She has multiple bulging disks in her back. She was supposed to start physical therapy and rehabilitation at [facility]; however, she has fallen about 11 times in the last 2 weeks and has been so weak that she is unable to take care of herself and was admitted for pain management and hopefully transfer her to [facility] once she is accepted. She did actually very well. The CT scan of her thoracic and lumbar spine showed no evidence of fracture. Her pain is much better controlled. She was in fact accepted today at [facility] and will be discharged there to continue the course of physical and occupational therapy. On questioning her today, she stated that her pain is much better controlled. Denied any other complaint. PHYSICAL EXAMINATION: GENERAL: When I examined her, she was pale, but no jaundice, cyanosis, or thyromegaly. No jugular venous distention. No limb edema. VITAL SIGNS: Her heart rate was 82, blood pressure was 100/65, temperature was 98.4, respiratory rate 20, and oxygen saturation was 95% on room air. HEAD, EYES, EARS, NOSE, AND THROAT: Showed normocephalic, atraumatic. NECK: Supple. HEART: Showed normal first and second sounds with no gallop, rub, or murmur. CHEST: Clear to auscultation. No crepitation or rhonchi. ABDOMEN: Distended, soft, nontender. No guarding or rigidity. No organomegaly. All hernial orifices intact. Bowel sounds normal. NEUROLOGIC: She was awake, alert, responding appropriately. Cranial nerves intact. She has paraplegia with marked muscle wasting and fixed flexion contracture. She is able to use her left upper extremity to much good extent than her right upper extremity due to fixed flexion contracture of her fingers. She is mostly bed bound, wheelchair bound. Her intake over the last 24 hours was 1020, output was 200. Her lab work as of this morning showed a white cell count 7200, hemoglobin 12.4, hematocrit 36, MCV 88, and platelet count of 332,000. Her chemistry showed a serum sodium 144, potassium 3.4, chloride 106, bicarbonate 30, anion gap of 8, BUN 6, creatinine 0.6, estimated GFR was 170 mL per minute. Her glucose was 136. Calcium was 9.2. Total bilirubin, AST, ALT, alkaline phosphatase were normal. Her total protein was 6.4, albumin was 3. The patient was discharged to [facility] to continue on cyanocobalamin 1000 mcg per mL intramuscularly once a month, Actos 30 mg once a day, paroxetine 40 mg once a day, cetirizine 10 mg daily, atorvastatin 40 mg at bedtime, Protonix 40 mg daily, oxybutynin 5 mg twice a day, meloxicam 15 mg once a day, Flonase 2 sprays to each nostril once a day, diltiazem extended release 240 mg once a day, Wellbutrin 100 mg daily, aspirin 81 mg once a day, levothyroxine 250 mcg daily, alprazolam 1 mg p.o. b.i.d., Lidoderm patch 1 patch to the lower back on for 12 hours and off for 12 hours, Pulmicort 0.5 mg by nebulizer twice a day, albuterol sulfate 2.5 mg by nebulizer 4 times a day, metformin 1000 mg twice a day with meals, glimepiride 4 mg twice a day with meals, carvedilol 6.25 mg twice a day, albuterol sulfate 2.5 mg by nebulizer every 4 hours, oxycodone 20 mg twice a day, methocarbamol 1000 mg every 8 hours, and fentanyl citrate 100 mcg per hour topically q.72h. FINAL DISCHARGE DIAGNOSES: Cerebral palsy with multiple falls. Other medical problems including hypertension, hyperlipidemia, vitamin B12 deficiency, type 2 diabetes mellitus, hypothyroidism, overactive bladder, gastroesophageal reflux disease, bronchial asthma, and obviously cerebral palsy. ALL LONG MD DR: THI/betzaida JOB#: [id number] / [id number]
[2017-03-07] MEDS ORDERED: CYANOCOBALAMIN (VITAMIN B-12) 1,000 MCG/ML VIAL IM SCH (09:00)
== END 2017-02-06 13:55 | DRG 93 ==
LOC: ER 17:58 → 1 SOUTH 21:24 → UNDOADMIN 21:24
PROVIDERS: ADMIT Internal Medicine; ATTEND Internal Medicine
DX: G80.9 Cerebral palsy, unspecified (principal); I10 Essential (primary) hypertension; E53.8 Deficiency of other specified B group vitamins; E03.9 Hypothyroidism, unspecified; E11.9 Type 2 diabetes mellitus without complications; E78.5 Hyperlipidemia, unspecified; J45.909 Unspecified asthma, uncomplicated; K21.9 Gastro-esophageal reflux disease without esophagitis; F41.9 Anxiety disorder, unspecified; F32.9 Major depressive disorder, single episode, unspecified; S80.212A Abrasion, left knee, initial encounter; S80.211A Abrasion, right knee, initial encounter; N32.81 Overactive bladder; R29.6 Repeated falls; M54.5 Low back pain; W18.39XA Other fall on same level, initial encounter; Y93.89 Activity, other specified; Y99.8 Other external cause status; Y92.89 Other specified places as the place of occurrence of the external cause; Z88.6 Allergy status to analgesic agent; Z88.1 Allergy status to other antibiotic agents; Z88.8 Allergy status to other drugs, medicaments and biological substances
CPT/HCPCS: 36415; 72128; 72131; 80053; 81001; 82550; 83036; 84443; 85025; 87040; 87086; 87186; 94640; 97163; J0696; J7613; J7626; 97530; 99285-25

== ENCOUNTER 2017-06-24 20:39 | Emergency (ER) | payer MEDICARE ==
[~2017-06-24] VITALS: Ht 157.5 cm; Wt 123.7 kg
[~2017-06-24 20:39] MED LIST changes: +CARV6.252 PO; +DILT240C66 PO; +PIOG30TA41 PO
--- NOTE | 2017-06-24 22:23 | RAD ---
Indication: Cerebral palsy. Fall, left-sided chest and rib pain. Short of air. Injury was 5 days ago. Technique: Axial images and coronal and sagittal reformatted images are provided. Comparison is from March 27, 2016. One or more of the following individualized dose reduction techniques were utilized for this examination: 1. Automated exposure control 2. Adjustment of the mA and/or kV according to patient size 3. Use of iterative reconstruction technique Findings: There is atelectasis in the lung bases. There is no consolidation. There is no pneumothorax or pleural effusion. There is no worrisome pulmonary nodule. There is scatter artifact from body habitus. Central airways are patent. Heart is not enlarged. There is no hilar or mediastinal adenopathy apparent on this noncontrast study. A displaced rib fracture is not apparent. Prominent axillary lymph nodes are stable. There is no adrenal mass. IMPRESSION: 1. No acute thoracic findings. Electronically signed by: Samson Buchanan MD (06/24/2017 10:19 PM) [facility]
[2017-06-24] MEDS ORDERED: ORPHENADRINE CITRATE 60 MG/2 ML VIAL. IV ONE (23:00)
--- NOTE | 2017-06-24 23:08 | PHYS DOC ---
Past History Past Medical History: Anemia, Anxiety, Asthma, Depression, Diabetes, GERD, High Cholesterol, Hypothyroid, Other Past Surgical History: Other Alcohol Use: None Drug Use: None Adult General Chief Complaint Chief Complaint: RIB PAIN HPI HPI 46-year-old female patient brought in by EMS because of left rib pain after a fall. She has had multiple medical problems and cerebral palsy and states she usually using motorized scooter but able to stand up and 5 days ago when she tried to stand up, lost her balance and hit the left side of her chest wall and breast against rail guard. She complaining of pain in left breast and chest that getting force with movement and taking deep breaths. Patient complaining of muscle spasm and pain and states she took 2 methocarbamol without improvement of her pain. Patient state she has appointment with her doctor tomorrow and wanted to make sure that she is able to see her doctor tomorrow. Patient denies fever and chills, new focal neuro deficit, other injuries. Review of Systems Review of Systems Constitutional: Denies fever or chills [] Eyes: Denies change in visual acuity, redness, or eye pain [] HENT: Denies nasal congestion or sore throat [] Respiratory: Denies cough or shortness of breath [] Cardiovascular: No additional information not addressed in HPI [] GI: Denies abdominal pain, nausea, vomiting, bloody stools or diarrhea [] : Denies dysuria or hematuria [] Musculoskeletal: Denies back pain or joint pain [] Integument: Denies rash or skin lesions [] Neurologic: Denies headache, focal weakness or sensory changes [] Endocrine: Denies polyuria or polydipsia [] All other systems were reviewed and found to be within normal limits, except as documented in this note. Current Medications Current Medications Current Medications Medications (Trade) Dose Ordered Sig/Daniel Start Time Stop Time Status Last Admin Dose Admin Orphenadrine Citrate (Norflex) 60 mg 1X ONCE 06/24/17 23:00 06/24/17 23:01 DC Allergies Allergies Allergies Coded Allergies Type Severity Reaction Last Updated Verified Beta-Blockers (Beta-Adrenergic Bloc Allergy Intermediate Unknown 04/01/16 Yes Sulfa (Sulfonamide Antibiotics) Allergy Intermediate Unknown 04/01/16 Yes carbamazepine Allergy Intermediate Unknown 04/01/16 Yes ciprofloxacin Allergy Intermediate Unknown 04/01/16 Yes diphenhydramine Allergy Intermediate Unknown 08/24/15 Yes perflutren Allergy Intermediate Unknown 08/24/15 Yes tioconazole Allergy Intermediate Unknown 08/24/15 Yes vancomycin Allergy Intermediate 02/06/17 Yes Physical Exam Physical Exam Constitutional: Well nourished, mild distress, non-toxic appearance, anxious, morbidly obese. [] HENT: Normocephalic, atraumatic, bilateral external ears normal, oropharynx moist, no oral exudates, nose normal. [] Eyes: PERRLA, EOMI, conjunctiva normal, no discharge. [] Neck: Normal range of motion, no tenderness, supple, no stridor. [] Cardiovascular:Heart rate regular rhythm, no murmur [] Lungs & Thorax: Bilateral breath sounds clear to auscultation , left breast old ecchymosis and tenderness left-sided chest wall tenderness without crepitation or subcutaneous emphysema Abdomen: Bowel sounds normal, soft, no tenderness, no masses, no pulsatile masses. [] Skin: Warm, dry, no erythema, no rash. [] Back: No tenderness, no CVA tenderness. [] Extremities: No tenderness, no cyanosis, no clubbing, ROM intact, no edema. [] Neurologic: Alert and oriented X 3, cerebral palsy with lower extremity weakness Psychologic: Anxious EKG EKG [] Radiology/Procedures Radiology/Procedures [] [place] [address] IMAGING REPORT Signed PATIENT: CHANDLER CHEATHAM ACCOUNT: [id number] : 1970 LOCATION: ER AGE: 46 SEX: F EXAM STATUS: PRE ER ORD. PHYSICIAN: MAGDALENA ORTEZ MD REASON: fall and injury to left side of chest 5 days ago, cerebral palsy, PROCEDURE: CT CHEST WO CONTRAST Indication: Cerebral palsy. Fall, left-sided chest and rib pain. Short of air. Injury was 5 days ago. Technique: Axial images and coronal and sagittal reformatted images are provided. Comparison is from March 27, 2016. One or more of the following individualized dose reduction techniques were utilized for this examination: 1. Automated exposure control 2. Adjustment of the mA and/or kV according to patient size 3. Use of iterative reconstruction technique Findings: There is atelectasis in the lung bases. There is no consolidation. There is no pneumothorax or pleural effusion. There is no worrisome pulmonary nodule. There is scatter artifact from body habitus. Central airways are patent. Heart is not enlarged. There is no hilar or mediastinal adenopathy apparent on this noncontrast study. A displaced rib fracture is not apparent. Prominent axillary lymph nodes are stable. There is no adrenal mass. IMPRESSION: 1. No acute thoracic findings. Electronically signed by: Samson Buchanan MD (06/24/2017 10:19 PM) [facility] DICTATED AND SIGNED BY: SAMSON BUCHANAN MD DATE: 06/24/172213 CC: MAGDALENA ORTEZ MD; SERGIO SALES MD ~ Course & Med Decision Making Course & Med Decision Making Pertinent Labs and Imaging studies reviewed. (See chart for details) Evaluation of patient in ER showed 46-year-old female patient with history of cerebral palsy with injury to left side of chest that happened 5 days ago. Patient had various contusion and CT of chest was unremarkable. Patient treated with Norflex and instructed to continue her home OxyContin and follow up with her primary care physician. discharge: I've spoken with the patient and/or caregivers. I've explained the patient's condition, diagnosis and treatment plan based on information available to me at this time. I've answered the patient's and/or caregivers questions and addressed any concerns. The patient and/or caregivers have a good understanding the patient's diagnosis, condition and treatment plan as can be expected at this point. Vital signs have been stabilized. The patient's condition is stable for discharge from the emergency department. The patient will pursue further outpatient evaluation with her primary care provider or other designated consulting physician as outlined in the discharge instructions. Patient and/or caregivers are agreeable to this plan of care and follow-up instructions have been explained in detail. The patient and/or caregivers have received these instructions in written format and expressed understanding of these discharge instructions. The patient and her caregivers are aware that if any significant change in condition or worsening of symptoms should prompt him to immediately return to this of the closest emergency department. If an emergent department is not readily available I would encourage him to call 911. [] Valerie Disclaimer Dragon Disclaimer This electronic medical record was generated, in whole or in part, using a voice recognition dictation system. Departure Departure: Impression: Primary Impression: Chest wall contusion Additional Impressions: Fall at home Cerebral palsy Morbidly obese Anxiety Disposition: HOME, SELF-CARE (At 2300) Condition: IMPROVED Referrals: SERGIO SALES MD (PCP) Patient Instructions: Chest Contusion Additional Instructions: Drink plenty of liquids Follow-up with your primary care physician in 3-5 days Return to ER if not getting better Continue your home pain medication Problem Qualifiers MAGDALENA ORTEZ MD Jun 24, 2017 23:08
[2017-06-24 23:10] VITALS: BP 117/82
== END 2017-06-24 23:30 | disposition home or self-care (01) ==
LOC: ER 20:39
DX: S20.212A Contusion of left front wall of thorax, initial encounter (principal); N64.4 Mastodynia; G80.9 Cerebral palsy, unspecified; E66.01 Morbid (severe) obesity due to excess calories; F41.9 Anxiety disorder, unspecified; J45.909 Unspecified asthma, uncomplicated; K21.9 Gastro-esophageal reflux disease without esophagitis; E11.9 Type 2 diabetes mellitus without complications; E03.9 Hypothyroidism, unspecified; E78.00 Pure hypercholesterolemia, unspecified; F32.9 Major depressive disorder, single episode, unspecified; Z68.42 Body mass index [BMI] 45.0-49.9, adult; Z88.2 Allergy status to sulfonamides; Z88.1 Allergy status to other antibiotic agents; Z88.8 Allergy status to other drugs, medicaments and biological substances; W18.09XA Striking against other object with subsequent fall, initial encounter; Y93.89 Activity, other specified; Y99.8 Other external cause status; Y92.098 Other place in other non-institutional residence as the place of occurrence of the external cause
CPT/HCPCS: 71250; 96374; 99284; J2360

== ENCOUNTER 2019-08-16 16:05 | Emergency (ER) | payer MEDICARE ==
[~2019-08-16] VITALS: Ht 167.6 cm; Wt 120.0 kg
[~2019-08-16 16:05] MED LIST changes: -ALBU18HF IH; +ALBU2.5V8 IH; -BISO5TAB2 PO; +BISO5TAB8 PO; -CARV6.252 PO; +CARV6.2541 PO; -METF10002 PO; +METF10007 PO; +OXYB5TAB10 PO; -OXYB5TAB7 PO
[2019-08-16] MEDS ORDERED: dilTIAZem 25 MG/5 ML VIAL IVP ONE (16:15)
[2019-08-16] MEDS ORDERED: IV NORMAL SALINE 1,000ML 1,000 ML IV ONE (17:00)
--- NOTE | 2019-08-16 17:04 | RAD ---
Examination: PORTABLE CHEST 1V History: Palpitations Comparison/Correlation: 06/24/2017 CT chest without contrast Findings: Portable erect view of the chest was obtained. Heart size and pulmonary vasculature are normal. No infiltrate or pleural effusion. No pneumothorax. Bony structures are unremarkable for the patient's age. Impression: No active disease. Electronically signed by: Jann Renae MD (08/16/2019 5:01 PM) [id number]
--- NOTE | 2019-08-16 17:10 | PHYS DOC ---
Past History Past Medical History: Other Past Surgical History: No Surgical History Alcohol Use: None Drug Use: None Adult General Chief Complaint Chief Complaint: RAPID HEART RATE HPI HPI Patient is a 48-year-old female who presents via EMS with report of rapid heart rate at home. Patient states that she decided to call EMS when she found her heart rate to be 200. She indicates that she did have some chest discomfort earlier at home but chest pain is now resolved. Patient denies any nausea, vomiting or diaphoresis. Patient does indicate that she does feel lightheaded. [] Review of Systems Review of Systems Constitutional: Denies fever or chills [] Cardiovascular: No additional information not addressed in HPI [] GI: Denies abdominal pain, nausea, vomiting or diarrhea [] Integument: Denies rash or skin lesions [] Neurologic: Denies headache, focal weakness or sensory changes [] All other systems were reviewed and found to be within normal limits, except as documented in this note. Current Medications Current Medications Current Medications Medications (Trade) Dose Ordered Sig/Daniel Start Time Stop Time Status Last Admin Dose Admin Diltiazem HCl (Cardizem Iv Push) 20 mg 1X ONCE 08/16/19 16:15 08/16/19 16:16 DC Allergies Allergies Allergies Coded Allergies Type Severity Reaction Last Updated Verified Beta-Blockers (Beta-Adrenergic Bloc Allergy Intermediate Unknown 04/01/16 Yes Sulfa (Sulfonamide Antibiotics) Allergy Intermediate Unknown 04/01/16 Yes carbamazepine Allergy Intermediate Unknown 04/01/16 Yes ciprofloxacin Allergy Intermediate Unknown 04/01/16 Yes diphenhydramine Allergy Intermediate Unknown 08/24/15 Yes perflutren Allergy Intermediate Unknown 08/24/15 Yes tioconazole Allergy Intermediate Unknown 08/24/15 Yes vancomycin Allergy Intermediate 02/06/17 Yes Physical Exam Physical Exam Constitutional: Well developed, well nourished, no acute distress, non-toxic appearance. [] HENT: Normocephalic, atraumatic, bilateral external ears normal, oropharynx mois t, no oral exudates, nose normal. [] Eyes: PERRLA, EOMI, conjunctiva normal, no discharge. [] Neck: Normal range of motion, no tenderness, supple, no stridor. [] Cardiovascular: Mildly tachycardic rate with regular rhythm mur [] Lungs & Thorax: Bilateral breath sounds clear to auscultation [] Abdomen: Bowel sounds normal, soft, morbidly obese, nontender. [] Skin: Warm, dry, no erythema, no rash. [] Extremities: No tenderness, no cyanosis, no clubbing, ROM intact. [] Neurologic: Alert and oriented X 3, no focal deficits noted. [] Current Patient Data Vital Signs Vital Signs Date Time Temp Pulse Resp B/P (MAP) Pulse Ox O2 Delivery O2 Flow Rate FiO2 08/16/19 16:19 98.6 102 18 121/68 (85) 95 Room Air EKG EKG EKG demonstrates sinus tachycardia with a rate of 101. [] Radiology/Procedures Radiology/Procedures [] Impressions: PROCEDURE: PORTABLE CHEST 1V Examination: PORTABLE CHEST 1V History: Palpitations Comparison/Correlation: 06/24/2017 CT chest without contrast Findings: Portable erect view of the chest was obtained. Heart size and pulmonary vasculature are normal. No infiltrate or pleural effusion. No pneumothorax. Bony structures are unremarkable for the patient's age. Impression: No active disease. Electronically signed by: Jann Renae MD (08/16/2019 5:01 PM) [id number] Course & Med Decision Making Course & Med Decision Making Pertinent Labs and Imaging studies reviewed. (See chart for details) [] Dragon Disclaimer Dragon Disclaimer This electronic medical record was generated, in whole or in part, using a voice recognition dictation system. Departure Departure: Impression: Primary Impression: Sinus tachycardia Disposition: HOME, SELF-CARE Condition: STABLE Referrals: SERGIO SALES MD (PCP) Patient Instructions: Supraventricular Tachycardia MELLISA DOUGLAS Jr. DO Aug 16, 2019 17:10
[2019-08-16 17:11] LABS: BASO % 0 % (0-3); EOS # 0.2 x10^3/uL (0.0-0.7); EOS % 3 % (0-3); HEMATOCRIT 36.6 % (36.0-47.0); HEMOGLOBIN 11.6 g/dL (12.0-15.5); LYMPH # 2.3 x10^3/uL (1.0-4.8); LYMPH % 35 % (24-48); MEAN CORPUSCULAR HEMOGLOBIN 26 pg (25-35); MEAN CORPUSCULAR HGB CONC 32 g/dL (31-37); MEAN CORPUSCULAR VOLUME 82 fL (79-100); MONO # 0.2 x10^3/uL (0.0-1.1); MONO % 4 % (0-9); NEUT # 3.7 x10^3uL (1.8-7.7); NEUT % 58 % (31-73); PLATELET COUNT 373 x10^3/uL (140-400); RED BLOOD COUNT 4.49 x10^6/uL (3.50-5.40); RED CELL DISTRIBUTION WIDTH 17.3 % (11.5-14.5); WHITE BLOOD COUNT 6.5 x10^3/uL (4.0-11.0)
[2019-08-16 17:18] LABS: CREATININE 0.6 mg/dL (0.6-1.0); GFR 106.3; POTASSIUM 3.9 mmol/L (3.5-5.1)
[2019-08-16 17:20] LABS: BACTERIA,URINE FEW /HPF (0-FEW); BILIRUBIN,URINE NEG (NEG); CLARITY,URINE CLEAR; COLOR,URINE STRAW; GLUCOSE,URINE NEG (NEG); NITRITE,URINE NEG (NEG); RBC,URINE 0 /HPF (0-2); SQUAMOUS EPITHELIAL CELL,UR FEW /LPF; UROBILINOGEN,URINE 0.2 mg/dL (0.2 mg/dL); WBC,URINE 0 /HPF (0-4)
[2019-08-16 17:30] LABS: ALBUMIN 3.2 g/dL (3.4-5.0); ALBUMIN/GLOBULIN RATIO 0.9 (1.0-1.7); MAGNESIUM 1.6 mg/dL (1.8-2.4); TOTAL BILIRUBIN 0.3 mg/dL (0.2-1.0); TOTAL PROTEIN 6.6 g/dL (6.4-8.2)
--- NOTE | 2019-08-16 17:54 | EKG ---
[address] [address] Test Date: 2019-08-16 Test Time: 16:22:41 Pat Name: CHANDLER CHEATHAM Department: Room: Gender: F [employer]: : 1970 Requested By: MELLISA DOUGLAS Order Number: [id number] Reading MD: Measurements Intervals [place] Rate: 101 P: 49 CA: 202 QRS: 33 QRSD: 82 T: 33 QT: 346 QTc: 449 Interpretive Statements SINUS TACHYCARDIA PROLONGED CA INTERVAL ABNORMAL ECG RI6.01 No previous ECG available for comparison
[2019-08-16 17:59] VITALS: BP 156/99
[2019-08-16] MEDS ORDERED: CARVEDILOL 6.25 MG TABLET PO STA (17:59)
== END 2019-08-16 19:00 | disposition home or self-care (01) ==
LOC: ER 16:05
DX: R00.0 Tachycardia, unspecified (principal); Z88.1 Allergy status to other antibiotic agents; Z88.2 Allergy status to sulfonamides; Z88.8 Allergy status to other drugs, medicaments and biological substances
CPT/HCPCS: 36415; 71045; 80053; 81001; 83735; 83880; 84484; 85025; 85379; 93005; 96374; 99285; J3490

== ENCOUNTER 2019-10-19 17:37 | Emergency (ER) | payer MEDICARE ==
[~2019-10-19] VITALS: Ht 157.5 cm; Wt 129.5 kg
[2019-10-19 18:08] VITALS: BP 137/72
[2019-10-19] MEDS ORDERED: METHOCARBAMOL 500 MG TABLET PO ONE (18:15)
--- NOTE | 2019-10-19 18:53 | PHYS DOC ---
Past History Past Medical History: High Cholesterol, Hypertension, Other Additional Past Medical Histor: cerebral palsy Past Surgical History: No Surgical History Alcohol Use: Occasionally Drug Use: None General Adult EDM: Chief Complaint: MECHANICAL FALL HPI: HPI: Patient is a 49-year-old wheelchair-bound patient with cerebral palsy who presents after her gown got caught up in the gears of her electric wheelchair and threw her to the ground. She states she landed on her face she did not lose consciousness but she does have a headache and some pain across her nose. She says she had a brief nosebleed but no active bleeding now. She also states she landed on her knees and both knees are causing her quite a bit of pain. She does state that she laid in the floor no longer than an hour or so. Eventually, she was able to get Gely to call a neighbor who called EMS to bring her in for evaluation. [] Review of Systems: Review of Systems: Constitutional: Denies fever or chills Eyes: Denies change in visual acuity HENT: Pain across the bridge of the nose Respiratory: Denies cough or shortness of breath Cardiovascular: Denies chest pain or edema GI: Denies abdominal pain, nausea, vomiting, bloody stools or diarrhea : Denies dysuria Musculoskeletal: Denies back pain or joint pain Integument: Denies rash Neurologic: Denies headache, focal weakness or sensory changes Endocrine: Denies polyuria or polydipsia Lymphatic: Denies swollen glands Psychiatric: Reports depression and anxiety Heart Score: Risk Factors: Risk Factors: DM, Current or recent (<one month) smoker, HTN, HLP, family hist ory of CAD, obesity. Risk Scores: Score 0 - 3: 2.5% MACE over next 6 weeks - Discharge Home Score 4 - 6: 20.3% MACE over next 6 weeks - Admit for Clinical Observation Score 7 - 10: 72.7% MACE over next 6 weeks - Early Invasive Strategies Current Medications: Current Meds: Current Medications Medications (Trade) Dose Ordered Sig/Daniel Start Time Stop Time Status Last Admin Dose Admin Methocarbamol (Robaxin) 500 mg 1X ONCE 10/19/19 18:15 10/19/19 18:16 DC 10/19/19 18:38 500 MG Allergies: Allergies: Allergies Coded Allergies Type Severity Reaction Last Updated Verified Beta-Blockers (Beta-Adrenergic Bloc Allergy Intermediate Unknown 04/01/16 Yes Sulfa (Sulfonamide Antibiotics) Allergy Intermediate Unknown 04/01/16 Yes carbamazepine Allergy Intermediate Unknown 04/01/16 Yes ciprofloxacin Allergy Intermediate Unknown 04/01/16 Yes diphenhydramine Allergy Intermediate Unknown 08/24/15 Yes perflutren Allergy Intermediate Unknown 08/24/15 Yes tioconazole Allergy Intermediate Unknown 08/24/15 Yes vancomycin Allergy Intermediate 02/06/17 Yes Physical Exam: PE: Constitutional: Well developed, well nourished, no acute distress, non-toxic appearance. [] HENT: Normocephalic, atraumatic, bilateral external ears normal, oropharynx moist, no oral exudates, pain across the bridge of the nose no obvious deformity [] Eyes: PERRLA, EOMI, conjunctiva normal, no discharge. [] Neck: Normal range of motion, no tenderness, supple, no stridor. [] Cardiovascular:Heart rate regular rhythm, no murmur [] Lungs & Thorax: Bilateral breath sounds clear to auscultation [] Abdomen: Bowel sounds normal, soft, no tenderness, no masses, no pulsatile masses. [] Skin: Warm, dry, no erythema, no rash. [] Back: No tenderness, no CVA tenderness. [] Extremities: No tenderness, no cyanosis, no clubbing, ROM intact, no edema. [] Neurologic: Alert and oriented X 3, normal motor function, normal sensory function, no focal deficits noted. [] Psychologic: Very anxious [] Current Patient Data: Vital Signs: Vital Signs Date Time Temp Pulse Resp B/P (MAP) Pulse Ox O2 Delivery O2 Flow Rate FiO2 10/19/19 18:08 98.3 90 20 137/72 (93) 98 Room Air EKG: EKG: [] Radiology/Procedures: Radiology/Procedures: []REASON: Trauma, fell out of wheelchair, anterior knee pain PROCEDURE: KNEE BILAT 3V KNEE BILAT 3V Clinical Indication: Trauma, fell out of wheelchair. Anterior knee pain. Comparison: None. Findings: Right: Patella is in anatomic position. No joint effusion is seen. No acute fracture of the right knee is identified. There is medial compartment narrowing and marginal osteophyte formation. There is subcutaneous edema. No soft tissue swelling is identified. Left: Patella in anatomic position. There is no joint effusion. There are patellar enthesophytes. No acute fracture of the left knee is identified. There is narrowing of the lateral compartment and marginal osteophyte formation. No soft tissue swelling is seen. IMPRESSION: No acute fracture. Impressions: REASON: Trauma from fall, headache, nasal pain PROCEDURE: CT HEAD AND MAXILLOFACIAL WO PQRS Compliance Statement: One or more of the following individualized dose reduction techniques were utilized for this examination: 1. Automated exposure control 2. Adjustment of the mA and/or kV according to patient size 3. Use of iterative reconstruction technique CT HEAD AND MAXILLOFACIAL WO Clinical Indication: Trauma from fall, headache, nasal pain. Comparison: CT head without contrast November 21, 2012. Procedure: Axial images are obtained of the head from the skull base through the vertex without IV contrast. Helical CT imaging of the facial bones is performed without contrast. Findings: The lateral ventricles are prominent but unchanged. Probable old lacunar infarct left periventricular white matter. No mass-effect, midline shift, hemorrhage, extra-axial fluid collection, or obvious acute infarction is identified. Basilar cisterns are patent. Bone windows demonstrate no acute calvarial abnormality. There is no acute facial bone fracture. The mandible is intact. Upper cervical spine alignment is maintained. The visualized paranasal sinuses are clear. Mastoid air cells are well aerated. IMPRESSION: 1. No acute intracranial abnormality. 2. No acute facial bone fracture. Course & Med Decision Making: Course & Med Decision Making Pertinent Labs and Imaging studies reviewed. (See chart for details) [] ED course: Evaluation reveals a 49-year-old female that fell out of her wheelchair. It does not appear that she has any acute injuries and x-rays corroborate those physical exam findings. Patient is safe for discharge home. Dragon Disclaimer: Dragcarol Disclaimer: This electronic medical record was generated, in whole or in part, using a voice recognition dictation system. Departure Departure: Impression: Primary Impression: Facial contusion Qualified Codes: S00.83XA - Contusion of other part of head, initial encounter Additional Impression: Knee contusion Qualified Codes: S80.00XA - Contusion of unspecified knee, initial encounter Disposition: HOME/RESIDENCE PRIOR TO ADM Condition: STABLE Referrals: SERGIO SALES MD (PCP) Patient Instructions: Contusion Additional Instructions: Return to the emergency department with any new or concerning symptoms SIVA VYAS DO October 19, 2019 18:53
--- NOTE | 2019-10-19 19:02 | RAD ---
KNEE BILAT 3V Clinical Indication: Trauma, fell out of wheelchair. Anterior knee pain. Comparison: None. Findings: Right: Patella is in anatomic position. No joint effusion is seen. No acute fracture of the right knee is identified. There is medial compartment narrowing and marginal osteophyte formation. There is subcutaneous edema. No soft tissue swelling is identified. Left: Patella in anatomic position. There is no joint effusion. There are patellar enthesophytes. No acute fracture of the left knee is identified. There is narrowing of the lateral compartment and marginal osteophyte formation. No soft tissue swelling is seen. IMPRESSION: No acute fracture. Electronically signed by: Geovanny Briones MD (10/19/2019 6:58 PM) [id number]
== END 2019-10-19 20:05 | disposition home or self-care (01) ==
LOC: ER 17:37
DX: S00.83XA Contusion of other part of head, initial encounter (principal); S80.02XA Contusion of left knee, initial encounter; S80.01XA Contusion of right knee, initial encounter; G80.9 Cerebral palsy, unspecified; E78.00 Pure hypercholesterolemia, unspecified; I10 Essential (primary) hypertension; Z88.1 Allergy status to other antibiotic agents; Z88.2 Allergy status to sulfonamides; Z88.8 Allergy status to other drugs, medicaments and biological substances; V00.811A Fall from moving wheelchair (powered), initial encounter; Y93.89 Activity, other specified; Y92.89 Other specified places as the place of occurrence of the external cause; Y99.8 Other external cause status
CPT/HCPCS: 70450; 70486; 73562; 99285-25

== ENCOUNTER 2020-05-16 10:14 | Emergency (ER) | payer MEDICARE ==
[~2020-05-16] VITALS: Ht 157.5 cm; Wt 138.5 kg
[2020-05-16 10:15] VITALS: BP 124/71
--- NOTE | 2020-05-16 10:30 | PHYS DOC ---
Past History Past Medical History: High Cholesterol, Hypertension, Other Additional Past Medical Histor: cerebral palsy Past Surgical History: No Surgical History Alcohol Use: Occasionally Drug Use: None Adult General HPI HPI Patient is a 49-year-old female who presents via EMS for fall. Patient has cerebral palsy and has service dog at home with extensive supportive network, states she was using a specialized seated shower chair when it buckled and broke from under her. Patient reports falling straight down onto her tailbone causing focal pain to midline lower lumbar area and left hip. Patient was able to call EMS for help who ultimately transferred her to our facility for further evaluation. On arrival, patient GCS 15, AAOx3, complaining of ongoing lower lumbar pain and left hip. Denies hitting her head, no loss of consciousness reported Review of Systems Review of Systems Fourteen body systems of review of systems have been reviewed. See HPI for pertinent positives and negative responses, other thompson all other systems are negative, non-pertinent or non-contributory Allergies Allergies Allergies Coded Allergies Type Severity Reaction Last Updated Verified Beta-Blockers (Beta-Adrenergic Bloc Allergy Intermediate Unknown 04/01/16 Yes Sulfa (Sulfonamide Antibiotics) Allergy Intermediate Unknown 04/01/16 Yes carbamazepine Allergy Intermediate Unknown 04/01/16 Yes ciprofloxacin Allergy Intermediate Unknown 04/01/16 Yes diphenhydramine Allergy Intermediate Unknown 08/24/15 Yes perflutren Allergy Intermediate Unknown 08/24/15 Yes tioconazole Allergy Intermediate Unknown 08/24/15 Yes vancomycin Allergy Intermediate 02/06/17 Yes Physical Exam Physical Exam Constitutional: Pt is oriented to person, place, and time. Pt appears well-developed and well- nourished. Morbidly obese HEENT: Head: Normocephalic and atraumatic. External ears unremarkable, negative adams sign Conjunctivae and EOM are normal. Pupils are equal, round, and reactive to light. Oropharynx is clear and moist. No hematomas or lacerations or abrasions to face or scalp OP clear, no blood, no malocclusion, dentition intact Nares clear, no nasal septal hematoma Midface stable Neck: C-spine midline nontender, no step-offs, does have paracervical muscle tenderness bilaterally Cardiovascular: Normal rate, regular rhythm and normal heart sounds. Pulmonary/Chest: Effort normal and breath sounds diminished but normal given body habitus. No respiratory distress. No wheezes. CTA bilaterally. Abdominal: Soft. Bowel sounds are normal. Pt exhibits no distension. There is no tenderness. Musculoskeletal: No bony tenderness to extremities, no obvious visual and/or palpable deformities, full ROM extremities at baseline per patient Chest wall stable Pelvis stable and left lateral aspect of hip tender with palpation without any obvious abnormalities present, bilateral lower extremities neurovascularly intact, appropriate motor and sensory function present with external and internal rotation unimpaired No cervical nor thoracic vertebral TTP and spine without stepoffs. Patient does report central midline tenderness at L 3 and L4 levels centrally Neurological: Pt is alert and oriented to person, place, and time. Moving all extremities willfully, able to wiggle all fingers and toes Alert and oriented x 3 Sensation intact, no saddle anesthesia Skin: Skin is warm and dry. No abrasions, no lacerations Psychiatric: Behavior is appropriate for situation Current Patient Data Vital Signs Vital Signs Date Time Temp Pulse Resp B/P (MAP) Pulse Ox O2 Delivery O2 Flow Rate FiO2 05/16/20 10:15 98.0 82 20 124/71 (88) 98 Room Air EKG EKG [] Radiology/Procedures Radiology/Procedures PQRS Compliance Statement: One or more of the following individualized dose reduction techniques were utilized for this examination: 1. Automated exposure control 2. Adjustment of the mA and/or kV according to patient size 3. Use of iterative reconstruction technique CT LUMBAR SPINE WO, CT PELVIS WO 05/16/2020 10:45 AM Indication: Back pain, fall COMPARISON: Lumbar spine CT 02/04/2017 TECHNIQUE: Multiple axial CT images of the lumbar spine and pelvis were obtained without venous contrast. Coronal and sagittal reformats are provided. FINDINGS: Lumbar spine: There is minimal retrolisthesis of L1 on L2 and L3 on L4. There is moderate disc height loss at L4-L5 and L5-S1 with vacuum disc phenomena. No acute fracture is identified. Transverse processes appear intact. There is mild asymmetric atrophy of the right psoas muscle. Kidneys are normal in appearance. Abdominal aorta is normal in caliber. No pathologically enlarged retroperitoneal lymph nodes are identified. Visualized lung bases appear clear. No paraspinal soft tissue abnormality. L3-L4: There is mild disc bulge. Mild right and moderate left facet arthropathy. No significant neuroforaminal stenosis or spinal canal stenosis. L4-L5: There is a posterior disc osteophyte complex asymmetric to the right. Mild to moderate facet arthropathy. Moderate right and mild/moderate left n euroforaminal stenosis. Mild spinal canal stenosis with right lateral recess stenosis. L5-S1: There is a posterior disc osteophyte complex asymmetric to the left. Moderate to severe left and moderate right facet arthropathy. Moderate bilateral neuroforaminal stenosis, left greater than right. No spinal canal stenosis. Pelvis: Sacrum and coccyx are intact. No acute fracture or dislocation involving the pelvic ring. Superior and inferior pubic rami are intact. Acetabula are intact. Mild femoral acetabular joint space narrowing compatible with mild osteoarthrosis. Proximal femora appear intact. Pubic symphysis and sacroiliac joints are well aligned. Small and large bowel are normal in caliber. Urinary bladder is within normal limits in degree distention. Uterus and adnexa are normal by CT. IMPRESSION: 1. No acute fracture of the lumbar spine. Mild to moderate lumbar spondylosis. 2. No acute fracture or dislocation involving the pelvis. Electronically signed by: Wanda Juarez MD (05/16/2020 11:10 AM) [facility] Heart Score HEART Score for Chest Pain: HEART Score for Chest Pain Response (Comments) Value History Slighlty/Non-Suspicious 0 Age >45 - < 65 1 Risk Factors >3 Risk Factors or Hx CAD 2 Total 3 Risk Factors: Risk Factors: DM, Current or recent (<one month) smoker, HTN, HLP, family history of CAD, obesity. Risk Scores: Risk Factors: DM, Current or recent (<one month) smoker, HTN, HLP, family history of CAD, obesity. Course & Med Decision Making Course & Med Decision Making Discussed with the patient all findings and diagnostic testing. I discussed most likely diagnosis of contusion status post fall of less than 2 feet straight down onto coccyx. I feel her current condition will improve with supportive care, I educated her extensively on this. There are no other red flag signs or symptoms of back pain requiring further diagnostic work-up such as MRI or other intervention in ER setting. I stressed need for close outpatient follow-up to review today's ER visit. Strict return precautions were also discussed at length with good understanding by patient. Patient voiced understanding and agreement with the plan. Patient knows to come back for repeat evaluation if concerning signs or symptoms present prior to outpatient follow-up. Hemodynamically stable, ambulatory and well-appearing at time of disposition. Dragon Disclaimer Dragon Disclaimer This electronic medical record was generated, in whole or in part, using a voice recognition dictation system. Departure Departure: Impression: Primary Impression: Fall Additional Impression: Lower back pain Disposition: 01 DC HOME SELF CARE/HOMELESS Condition: STABLE Referrals: SERGIO SALES MD (PCP) Patient Instructions: Back Pain, Adult, Contusion Additional Instructions: You were evaluated in the Emergency Department today for back pain. Your evaluation suggests no acute abnormalities which require further intervention at this time. Your pain is most likely due to to a musculoskeletal cause that should improve with supportive care. - Move around as tolerated but avoiding heavy lifting. ``Bed rest is not recommended nor is it the best treatment for low back pain. - Medications will help control your discomfort: - -Ibuprofen (800 mg every 8 hours for pain) with food and/or Tylenol. You have previously prescribed narcotic pain medications also at your disposal - Do not drink alcohol, drive a car, operate machinery, or get up on ladders or heights when taking any prescribed pain medications. - Do not drive home if you received prescribed pain medications here in the ED. Return to the ED immediately if you develop any of the following problems: - Leaking urine or difficulty urinating; - Inability to control your bowels; - New numbness or weakness in your legs or numbness between your legs; - Inability to walk - Fever Problem Qualifiers LINDA MEJIA DO May 16, 2020 10:30
--- NOTE | 2020-05-16 11:12 | RAD ---
PQRS Compliance Statement: One or more of the following individualized dose reduction techniques were utilized for this examinat ion: 1. Automated exposure control 2. Adjustment of the mA and/or kV according to patient size 3. Use of iterative reconstruction technique CT LUMBAR SPINE WO, CT PELVIS WO 05/16/2020 10:45 AM Indication: Back pain, fall COMPARISON: Lumbar spine CT 02/04/2017 TECHNIQUE: Multiple axial CT images of the lumbar spine and pelvis were obtained without venous contr ast. Coronal and sagittal reformats are provided. FINDINGS: Lumbar spine: There is minimal retrolisthesis of L1 on L2 and L3 on L4. There is moderate disc height loss at L4-L5 and L5-S1 with vacuum disc phenomena. No acute fracture is identified. Transverse processes appear i ntact. There is mild asymmetric atrophy of the right psoas muscle. Kidneys are normal in appearance. Abdominal aorta is normal in caliber. No pathologically enlarged retroperitoneal lymph nodes are iden tified. Visualized lung bases appear clear. No paraspinal soft tissue abnormality. L3-L4: There is mild disc bulge. Mild right and moderate left facet arthropathy. No significant neuro foraminal stenosis or spinal canal stenosis. L4-L5: There is a posterior disc osteophyte complex asymmetric to the right. Mild to moderate facet a rthropathy. Moderate right and mild/moderate left neuroforaminal stenosis. Mild spinal canal stenosis with right lateral recess stenosis. L5-S1: There is a posterior disc osteophyte complex asymmetric to the left. Moderate to severe left a nd moderate right facet arthropathy. Moderate bilateral neuroforaminal stenosis, left greater than ri ght. No spinal canal stenosis. Pelvis: Sacrum and coccyx are intact. No acute fracture or dislocation involving the pelvic ring. Superior an d inferior pubic rami are intact. Acetabula are intact. Mild femoral acetabular joint space narrowing compatible with mild osteoarthrosis. Proximal femora appear intact. Pubic symphysis and sacroiliac j oints are well aligned. Small and large bowel are normal in caliber. Urinary bladder is within normal limits in degree distention. Uterus and adnexa are normal by CT. IMPRESSION: 1. No acute fracture of the lumbar spine. Mild to moderate lumbar spondylosis. 2. No acute fracture or dislocation involving the pelvis. Electronically signed by: Wanda Juarez MD (05/16/2020 11:10 AM) [facility]
== END 2020-05-16 12:20 | disposition home or self-care (01) ==
LOC: ER 10:14
DX: M54.5 Low back pain (principal); I10 Essential (primary) hypertension; E78.5 Hyperlipidemia, unspecified; W19.XXXA Unspecified fall, initial encounter; Y93.89 Activity, other specified; Y92.89 Other specified places as the place of occurrence of the external cause; Y99.8 Other external cause status
CPT/HCPCS: 72131; 72192; 99285-25

== ENCOUNTER 2020-05-30 09:18 | Emergency (ER) | payer MEDICARE ==
[~2020-05-30] VITALS: Ht 157.5 cm; Wt 138.5 kg
[2020-05-30] MEDS ORDERED: ORPHENADRINE CITRATE 60 MG/2 ML VIAL. IM ONE (09:30)
--- NOTE | 2020-05-30 10:29 | PHYS DOC ---
Past History Past Medical History: Diabetes, Fibromyalgia, High Cholesterol, Hypertension, Other Additional Past Medical Histor: cerebral palsy, SVT, DEGENERATIVE DISC Past Surgical History: Cholecystectomy, Other Additional Past Surgical Histo: NUMEROUS CHILDHOOD SURGERIES FOR CP, RIGHT FOOT Alcohol Use: None Drug Use: None General Adult EDM: Chief Complaint: MECHANICAL FALL HPI: HPI: 49-year-old female cerebral palsy patient coming in after a fall in her shower via EMS. She states that her knee gave out and bent inward. Fell and also hit her head but says she did not hit her head and was and had no loss of consciousness. Patient states that after the fall she started experiencing muscle spasms does not take her her muscle relaxers yet today. Says she otherwise has been well denies any fevers, cough, vomiting, diarrhea, change in urination. Review of Systems: Review of Systems: All other systems within normal limits except for as noted in the HPI Current Medications: Current Meds: Current Medications Medications (Trade) Dose Ordered Sig/Daniel Start Time Stop Time Status Last Admin Dose Admin Orphenadrine Citrate (Norflex) 60 mg 1X ONCE 05/30/20 09:30 05/30/20 09:31 DC 05/30/20 09:46 60 MG Allergies: Allergies: Allergies Coded Allergies Type Severity Reaction Last Updated Verified Beta-Blockers (Beta-Adrenergic Bloc Allergy Intermediate Unknown 05/30/20 Yes Sulfa (Sulfonamide Antibiotics) Allergy Intermediate Unknown 05/30/20 Yes carbamazepine Allergy Intermediate Unknown 05/30/20 Yes ciprofloxacin Allergy Intermediate Unknown 05/30/20 Yes diphenhydramine Allergy Intermediate Unknown 05/30/20 Yes perflutren Allergy Intermediate Unknown 05/30/20 Yes tioconazole Allergy Intermediate Unknown 08/24/15 Yes vancomycin Allergy Intermediate 02/06/17 Yes silver sulfadiazine Allergy Unknown 05/16/20 Yes Physical Exam: PE: Constitutional: Well developed, well nourished, no acute distress, non-toxic appearance. [] HENT: Normocephalic, atraumatic, bilateral external ears normal, nose normal. [] Eyes: PERRLA, conjunctiva normal, no discharge. [] Neck: No rigidity, supple, no stridor. [] Cardiovascular: Regular rate and rhythm, brisk cap refill [] Lungs & Thorax: Non labored symmetric respirations, no tachypnea or respiratory distress [] Abdomen: Soft, nondistended. Skin: Warm, dry, no erythema, no rash. [] Back: No tenderness, no CVA tenderness. [] Extremities: No deformities, range of motion grossly intact, no lower extremity edema [] tenderness to right knee with mild edema, tenderness over right hip. Neurologic: Alert and oriented X 3, no focal deficits noted. [] Psychologic: Affect normal, judgement normal, mood normal. [] Current Patient Data: Vital Signs: Vital Signs Date Time Temp Pulse Resp B/P (MAP) Pulse Ox O2 Delivery O2 Flow Rate FiO2 05/30/20 09:18 98.1 63 18 153/85 (107) 98 EKG: EKG: [] Radiology/Procedures: Radiology/Procedures: PROCEDURE: HIP RIGHT 2 VIEW Indications: Fall and pain Two-view right hip study: No acute fracture or dislocation or lytic process is seen. Three-view right knee study: No acute fracture or dislocation or lytic process is seen. Small right effusion is seen. Mild primary degenerative osteoarthritis of the tibiofemoral joint compartments and the patellofemoral joint compartment is seen. IMPRESSION: No acute fracture. PROCEDURE: HIP RIGHT 2 VIEW Indications: Fall and pain Two-view right hip study: No acute fracture or dislocation or lytic process is seen. Three-view right knee study: No acute fracture or dislocation or lytic process is seen. Small right effusion is seen. Mild primary degenerative osteoarthritis of the tibiofemoral joint compartments and the patellofemoral joint compartment is seen. IMPRESSION: No acute fracture. [] Heart Score: Risk Factors: Risk Factors: DM, Current or recent (<one month) smoker, HTN, HLP, family history of CAD, obesity. Risk Scores: Score 0 - 3: 2.5% MACE over next 6 weeks - Discharge Home Score 4 - 6: 20.3% MACE over next 6 weeks - Admit for Clinical Observation Score 7 - 10: 72.7% MACE over next 6 weeks - Early Invasive Strategies Course & Med Decision Making: Course & Med Decision Making Pertinent Labs and Imaging studies reviewed. (See chart for details) [] Dragon Disclaimer: Valerie Disclaimer: This electronic medical record was generated, in whole or in part, using a voice recognition dictation system. Departure Departure: Impression: Primary Impression: Fall Additional Impression: Contusion of right patella Disposition: 01 DC HOME SELF CARE/HOMELESS Condition: STABLE Referrals: SERGIO SALSE MD (PCP) Patient Instructions: Fall Prevention and Home Safety WALT DAVIS MD May 30, 2020 10:29
--- NOTE | 2020-05-30 10:34 | RAD ---
Indications: Fall and pain Two-view right hip study: No acute fracture or dislocation or lytic process is seen. Three-view right knee study: No acute fracture or dislocation or lytic process is seen. Small right e ffusion is seen. Mild primary degenerative osteoarthritis of the tibiofemoral joint compartments and the patellofemoral joint compartment is seen. IMPRESSION: No acute fracture. Electronically signed by: Rajesh Eli MD (05/30/2020 10:31 AM) [id number]
[2020-05-30 11:23] VITALS: BP 165/75
[2020-05-30] MEDS ORDERED: METHOCARBAMOL 500 MG TABLET PO PRN (14:15)
[2020-05-31] MEDS ORDERED: LEVO112T4 PO (16:06)
[2020-05-31] MEDS ORDERED: BUPR300T92 PO (16:06)
== END 2020-05-30 14:10 | disposition home or self-care (01) ==
LOC: ER 09:18
DX: S80.01XA Contusion of right knee, initial encounter (principal); G80.9 Cerebral palsy, unspecified; E11.9 Type 2 diabetes mellitus without complications; M79.7 Fibromyalgia; E78.00 Pure hypercholesterolemia, unspecified; I10 Essential (primary) hypertension; Z88.2 Allergy status to sulfonamides; Z88.1 Allergy status to other antibiotic agents; Z88.8 Allergy status to other drugs, medicaments and biological substances; W18.2XXA Fall in (into) shower or empty bathtub, initial encounter; Y93.89 Activity, other specified; Y92.89 Other specified places as the place of occurrence of the external cause; Y99.8 Other external cause status
CPT/HCPCS: 73502; 73562; 96372; 99284; J2360

== ENCOUNTER 2020-05-31 11:11 | Observation (INO) | payer MEDICARE ==
[~2020-05-31] VITALS: Ht 157.5 cm; Wt 134.0 kg
--- NOTE | 2020-05-31 11:40 | PHYS DOC ---
Past History Past Medical History: Diabetes, Fibromyalgia, High Cholesterol, Hypertension, Other Additional Past Medical Histor: cerebral palsy, SVT, DEGENERATIVE DISC Past Surgical History: Cholecystectomy, Other Additional Past Surgical Histo: NUMEROUS CHILDHOOD SURGERIES FOR CP, RIGHT FOOT Alcohol Use: None Drug Use: None Adult General Chief Complaint Chief Complaint: KNEE INJURY HPI HPI Patient is a 49yo female presenting via EMS for chronic pain and inability to care for self. She was seen and evaluated at our facility yesterday for knee pain that was deemed musculoskeletal in nature and discharged home with continued supportive care. She has many resources at home such as [facility], home PT/OT etc. Nonetheless, patient was seen today by all of these services and was noticeably more weak and had extreme difficulties with transferring with assistance which is new for her. She subsequently accepted the fact that she is currently requiring a higher level of care than what is currently available at home prompting her to call EMS for transport to our facility for repeat evaluation. Of note, this is her 3rd ER visit in past 2 weeks. Review of Systems Review of Systems Fourteen body systems of review of systems have been reviewed. See HPI for pertinent positives and negative responses, other thompson all other systems are negative, non-pertinent or non-contributory Allergies Allergies Allergies Coded Allergies Type Severity Reaction Last Updated Verified Beta-Blockers (Beta-Adrenergic Bloc Allergy Intermediate Unknown 05/30/20 Yes Sulfa (Sulfonamide Antibiotics) Allergy Intermediate Unknown 05/30/20 Yes carbamazepine Allergy Intermediate Unknown 05/30/20 Yes ciprofloxacin Allergy Intermediate Unknown 05/30/20 Yes diphenhydramine Allergy Intermediate Unknown 05/30/20 Yes perflutren Allergy Intermediate Unknown 05/30/20 Yes tioconazole Allergy Intermediate Unknown 08/24/15 Yes vancomycin Allergy Intermediate 02/06/17 Yes silver sulfadiazine Allergy Unknown 05/16/20 Yes Physical Exam Physical Exam Constitutional: Well developed, well nourished, no acute distress, non-toxic appearance. Morbidly obese and appears bed bound with service dog at her side HENT: Normocephalic, atraumatic, bilateral external ears normal, oropharynx moist, no oral exudates, nose normal. Eyes: PERRLA, EOMI, conjunctiva normal, no discharge. Neck: Normal range of motion, no tenderness, supple, no stridor. Cardiovascular: Heart rate regular, sinus rhythm, no murmurs rubs or gallops Lungs & Thorax: No resp distress, diminished breath sounds globally due to body habitus Abdomen: Bowel sounds normal, soft, no tenderness, no masses, no pulsatile masses. Nonsurgical abdomen, no peritoneal signs Skin: Warm, dry, no erythema, no rash. Back: No midline tenderness, no CVA tenderness. Extremities: No palpable bony abnormalities, generalized tenderness, no cyanosis, no clubbing, 1+ pitting edema bilateral LEs Neurologic: Alert and oriented X 3, grossly normal motor & sensory function, no focal deficits noted. Psychologic: Affect normal, judgement normal, mood normal. Current Patient Data Vital Signs Vital Signs Date Time Temp Pulse Resp B/P (MAP) Pulse Ox O2 Delivery O2 Flow Rate FiO2 05/31/20 11:25 97.8 82 16 142/70 (94) 94 Lab Results Laboratory Tests Test 05/31/20 13:39 05/31/20 13:41 05/31/20 16:40 White Blood Count 8.9 x10^3/uL Red Blood Count 4.15 x10^6/uL Hemoglobin 10.5 g/dL Hematocrit 32.9 % Mean Corpuscular Volume 79 fL Mean Corpuscular Hemoglobin 25 pg Mean Corpuscular Hemoglobin Concent 32 g/dL Red Cell Distribution Width 16.9 % Platelet Count 379 x10^3/uL Neutrophils (%) (Auto) 61 % Lymphocytes (%) (Auto) 29 % Monocytes (%) (Auto) 6 % Eosinophils (%) (Auto) 4 % Basophils (%) (Auto) 1 % Neutrophils # (Auto) 5.5 x10^3uL Lymphocytes # (Auto) 2.6 x10^3/uL Monocytes # (Auto) 0.5 x10^3/uL Eosinophils # (Auto) 0.3 x10^3/uL Basophils # (Auto) 0.0 x10^3/uL Sodium Level 141 mmol/L Potassium Level 3.6 mmol/L Chloride Level 104 mmol/L Carbon Dioxide Level 30 mmol/L Anion Gap 7 Blood Urea Nitrogen 13 mg/dL Creatinine 0.5 mg/dL Estimated GFR (Cockcroft-Gault) 130.6 Glucose Level 104 mg/dL Calcium Level 8.7 mg/dL Urine Collection Type Unknown Urine Color Yellow Urine Clarity Clear Urine pH 6.0 Urine Specific [place] <=1.005 Urine Protein Neg Urine Glucose (UA) Neg mg/dL Urine Ketones (Stick) Neg mg/dL Urine Blood Neg Urine Nitrite Pos Urine Bilirubin Neg Urine Urobilinogen Dipstick 0.2 mg/dL Urine Leukocyte Esterase Trace Urine RBC 3-5 /HPF Urine WBC 1-4 /HPF Urine Squamous Epithelial Cells Many /LPF Urine Bacteria Few /HPF Urine Mucus Slight /LPF Glucose (Fingerstick) 142 mg/dL Current Medications Medications (Trade) Dose Ordered Sig/Daniel Route PRN Reason Start Time Stop Time Status Last Admin Dose Admin Acetaminophen (Tylenol) 650 mg PRN Q4HRS PRN PO FEVER > 100.3'F 05/31/20 11:45 06/01/20 11:44 05/31/20 12:19 EKG EKG [] Radiology/Procedures Radiology/Procedures [] Heart Score HEART Score for Chest Pain: HEART Score for Chest Pain Response (Comments) Value History Slighlty/Non-Suspicious 0 Age >45 - < 65 1 Risk Factors >3 Risk Factors or Hx CAD 2 Total 3 Risk Factors: Risk Factors: DM, Current or recent (<one month) smoker, HTN, HLP, family history of CAD, obesity. Risk Scores: Risk Factors: DM, Current or recent (<one month) smoker, HTN, HLP, family history of CAD, obesity. Course & Med Decision Making Course & Med Decision Making Prior visit's studies reviewed Patient unable to safely ambulate and care for self at home. Does not have regular care at home to assist through personal deficits. Unsafe to disposition home; at minimum plan admission for home safety evaluation, social and physical therapy evaluations, possible placement Patient accepted under care of Dr. Ahuja at [facility] Disclaimer [facility] Disclaimer This electronic medical record was generated, in whole or in part, using a voice recognition dictation system. Departure Departure: Impression: Primary Impression: Inability to walk Additional Impressions: Physical deconditioning Cerebral palsy Multiple falls Disposition: ADMITTED INPT THIS HOSP Admitting Physician: Dario Ahuja Condition: STABLE Referrals: SERGIO SALES MD (PCP) Problem Qualifiers LINDA MEJIA DO May 31, 2020 11:40
[2020-05-31] MEDS: ACETAMINOPHEN 325 MG TABLET PO PRN (12:19)
--- NOTE | 2020-05-31 13:41 | HP ---
ADMIT DATE: 05/31/2020 ATTENDING PHYSICIAN: Dr. Cook. CHIEF COMPLAINT: Weakness and right knee pain. HISTORY OF PRESENT ILLNESS: The patient is a 49-year-old female with multiple disabilities. She has advanced multiple sclerosis. She lives alone. She has a service dog along with home health services. She could not transfer. She hurt her right knee, it twisted. No obvious fractures. She went to the Emergency Room complaining of inability to ambulate and transfer. She would like to get into a rehab facility. We were asked to admit her overnight for observation to get physical therapy on the case and to get her placed in a subacute rehab facility. PAST MEDICAL HISTORY: Significant for longstanding deconditioning along with cerebral palsy, inability to walk. She has a service dog for the last 8 years. She has sensorineural hearing loss in both ears, noncardiac chest pain, multiple falls and contusions and generalized debilitation. She also has hyperlipidemia, hypothyroidism, and type 2 diabetes. CURRENT MEDICATIONS: Include the following: Albuterol, alprazolam, aspirin, Lipitor, BuSpar, Coreg, cyanocobalamin, diltiazem, fluticasone, Amaryl, Synthroid, lidocaine, loratadine, meloxicam, metformin, Robaxin, oxybutynin, Protonix, Paxil, Actos and hydrocortisone cream. ALLERGIES: SHE HAS ALLERGIES TO SULFA DRUGS, CARBAMAZEPINE, CIPRO, DIPHENHYDRAMINE, SILVER SULFADIAZINE, VANCOMYCIN AND TIOCONAZOLE, EXACT REACTIONS UNCLEAR. SOCIAL HISTORY: She is a nonsmoker and nondrinker. FAMILY HISTORY: Her mom of complications of heart disease at age 64. Biological father, she did not know him. She is a nonsmoker, nondrinker. REVIEW OF SYSTEMS: Significant for the recent admission to in [facility]. She denied any fevers, chills, cough, congestion, chest pain. All other systems reviewed and turned to be negative. PHYSICAL EXAMINATION: GENERAL: When I saw her, this is a pleasant, alert, middle-aged female. INITIAL VITAL SIGNS: Showed blood pressure 142/70 mmHg, pulse is 82 and regular, temperature 97.8, oxygen saturation 94% on room air. HEENT: Head is without trauma. Pupils are reactive. Sclerae nonicteric. Oropharynx is clear. NECK: Supple, no bruits identified. LUNGS: Good breath sounds. CARDIOVASCULAR: Showed regular heart tones. No gallops. ABDOMEN: Soft, no guarding, rebound tenderness. EXTREMITIES: Showed degenerative arthritis. The right knee appears a little more swollen than the left. There is minimal redness. No effusions identified. She is nonambulatory at this time. X-rays of the right knee showed no acute fracture. X-ray of the hip showed no acute fracture site. ASSESSMENT: 1. A 49-year-old female with inability to care for self at home. She lives alone. She cannot transfer and ambulate. 2. Degenerative arthritis, both knees. 3. Longstanding cerebral palsy. 4. Hypothyroidism, on replacement. 5. Obesity. 6. Deconditioning. 7. Type 2 diabetes. PLAN: 1. Observation status. 2. Physical therapy recommendation. 3. Continue home meds. 4. We will try for placement. SHELDON COOK MD DR: TOMEKA/betzaida JOB#: [id number] / [id number] SERGIO Dennison MD
[2020-05-31 14:01] LABS: BASO % 1 % (0-3); EOS # 0.3 x10^3/uL (0.0-0.7); EOS % 4 % (0-3); HEMATOCRIT 32.9 % (36.0-47.0); HEMOGLOBIN 10.5 g/dL (12.0-15.5); LYMPH # 2.6 x10^3/uL (1.0-4.8); LYMPH % 29 % (24-48); MEAN CORPUSCULAR HEMOGLOBIN 25 pg (25-35); MEAN CORPUSCULAR HGB CONC 32 g/dL (31-37); MEAN CORPUSCULAR VOLUME 79 fL (79-100); MONO # 0.5 x10^3/uL (0.0-1.1); MONO % 6 % (0-9); NEUT # 5.5 x10^3uL (1.8-7.7); NEUT % 61 % (31-73); PLATELET COUNT 379 x10^3/uL (140-400); RED BLOOD COUNT 4.15 x10^6/uL (3.50-5.40); RED CELL DISTRIBUTION WIDTH 16.9 % (11.5-14.5); WHITE BLOOD COUNT 8.9 x10^3/uL (4.0-11.0)
[2020-05-31 14:03] LABS: BILIRUBIN,URINE NEG (NEG); CLARITY,URINE CLEAR; COLOR,URINE YELLOW; GLUCOSE,URINE NEG (NEG); UROBILINOGEN,URINE 0.2 mg/dL (0.2 mg/dL)
[2020-05-31 14:04] LABS: NITRITE,URINE POS (NEG)
[2020-05-31 14:08] LABS: CALCIUM 8.7 mg/dL (8.5-10.1); CREATININE 0.5 mg/dL (0.6-1.0)
[2020-05-31 14:09] LABS: GFR 130.6; POTASSIUM 3.6 mmol/L (3.5-5.1)
[2020-05-31 14:19] LABS: BACTERIA,URINE FEW /HPF (0-FEW); SQUAMOUS EPITHELIAL CELL,UR MANY /LPF
--- NOTE | 2020-05-31 14:40 | NUR ---
PT ARRIVED TO INIT VIA EMS. PT IS STABLE AT TIME OF ADMISSION. PTS VS OBTAINED. PT IS ORIENTED TO UNIT AND STAFF. PT IS OFFERED FOOD AND DRINK. PATIENT IS RESTING IN ROOM AT THIS TIME WILL CONTINUE TO MONITOR.
[2020-05-31 16:06] VITALS: BP 130/75
[2020-05-31] MEDS ORDERED: BUPR300T92 PO (16:06)
[2020-05-31] MEDS ORDERED: LEVO112T4 PO (16:06)
[2020-05-31] MEDS: metFORMIN 500 MG TABLET PO SCH (16:53)
[2020-05-31] MEDS: GLIMEPIRIDE 2 MG TABLET PO SCH (16:53)
[2020-05-31] MEDS: CARVEDILOL 6.25 MG TABLET PO SCH (16:54)
[2020-05-31] MEDS: MORPHINE SULFATE 4 MG/ML DISP.SYRIN. IV PRN (16:55)
[2020-05-31 19:10] VITALS: BP 108/74
[2020-05-31] MEDS: BUDESONIDE 0.5 MG/2 ML NEBU NEB SCH (19:56)
[2020-05-31] MEDS: ALBUTEROL SULFATE 2.5 MG/3 ML NEBU. NEB SCH (19:57)
[2020-05-31] MEDS: ALPRAZolam 0.5 MG TABLET PO SCH (20:48)
[2020-05-31] MEDS: LIDOCAINE (700MG/PATCH) PATCH. TP SCH (20:48)
[2020-05-31] MEDS: OXYBUTYNIN CHLORIDE 5 MG TABLET PO SCH (20:48)
[2020-05-31] MEDS: PANTOPRAZOLE 40 MG TABLET. PO SCH (20:48)
[2020-05-31] MEDS ORDERED: NON FORMULARY ITEM (Fluticasone/Salmeterol (Advair 100-50 Diskus) 1 EACH) IH SCH (21:00)
[2020-05-31] MEDS: METHOCARBAMOL 500 MG TABLET PO PRN (22:30)
[2020-06-01] MEDS ORDERED: ROPI4TAB10 PO (00:15)
[2020-06-01 00:34] VITALS: BP 112/75
[2020-06-01] MEDS: LEVOTHYROXINE 112 MCG TABLET PO SCH (05:08)
[2020-06-01] MEDS: ACETAMINOPHEN 325 MG TABLET PO PRN (05:08)
[2020-06-01] MEDS: ALBUTEROL SULFATE 2.5 MG/3 ML NEBU. NEB SCH ×4 (05:30→20:20)
[2020-06-01] MEDS: buPROPion XL 300 MG TAB.ER.24H. PO SCH (08:50)
[2020-06-01] MEDS: PARoxetine 20 MG TABLET PO SCH (08:50)
[2020-06-01] MEDS: OXYBUTYNIN CHLORIDE 5 MG TABLET PO SCH ×2 (08:50→20:49)
[2020-06-01] MEDS: ASPIRIN CHEWABLE 81 MG TABLET. PO SCH (08:51)
[2020-06-01] MEDS: PANTOPRAZOLE 40 MG TABLET. PO SCH ×2 (08:51→20:49)
[2020-06-01] MEDS: GLIMEPIRIDE 2 MG TABLET PO SCH ×2 (08:51→16:35)
[2020-06-01] MEDS: CARVEDILOL 6.25 MG TABLET PO SCH ×2 (08:52→16:35)
[2020-06-01] MEDS: PIOGLITAZONE 15 MG TABLET. PO SCH (08:52)
[2020-06-01] MEDS: FLUTICASONE 50MCG/NASAL SPRAY 16GM BOTTLE. NS SCH (08:53)
[2020-06-01] MEDS: ATORVASTATIN CALCIUM 20 MG TABLET PO SCH (08:53)
[2020-06-01] MEDS: metFORMIN 500 MG TABLET PO SCH ×2 (08:55→16:35)
[2020-06-01] MEDS: METHOCARBAMOL 500 MG TABLET PO PRN ×2 (09:05→23:16)
[2020-06-01] MEDS: MORPHINE SULFATE 4 MG/ML DISP.SYRIN. IV PRN ×3 (09:05→17:53)
[2020-06-01 11:06] VITALS: BP 106/65
--- NOTE | 2020-06-01 11:38 | PN ---
DATE: 06/01/2020 SUBJECTIVE: No new complaints. Her home meds have been restarted. Pain is managed. OBJECTIVE: VITAL SIGNS: Blood pressure today is 112/75, pulse 73 and regular. She is afebrile. Oxygen saturation 99% on room air. HEENT: Head is without trauma. Pupils are reactive. Sclerae nonicteric. Oropharynx clear. NECK: Supple, no bruits. LUNGS: Clear. CARDIOVASCULAR: Regular heart tones. ABDOMEN: Soft, no guarding. EXTREMITIES: Without edema. NEUROLOGIC: Focally intact. PERTINENT LABORATORY STUDIES: Reviewed. ASSESSMENT: A 49-year-old female: 1. Inability to care for herself. 2. Degenerative arthritis. 3. Longstanding cerebral palsy. 4. Hypothyroidism, on replacement. 5. Obesity. 6. Deconditioning. 7. Type 2 diabetes. PLAN: 1. Physical therapy recommendation. 2. Continue home meds. 3. We are awaiting placement. SHELDON COOK MD DR: TOMEKA/betzaida JOB#: [id number] / [id number]
[2020-06-01] MEDS: BUDESONIDE 0.5 MG/2 ML NEBU NEB SCH ×2 (11:42→20:20)
[2020-06-01 14:50] VITALS: BP 108/69
--- NOTE | 2020-06-01 16:00 | NUR ---
Patient has scratches and a dime sized open blister on her back; wounds photographed per K[employer] method. Patient states wounds are related to Bullous pemphigoid. Physician paged, new orders received; will continue to monitor.
[2020-06-01] MEDS ORDERED: methylPREDNISolone SOD SUCC PF 40 MG/ML VIAL. IV ONE (16:15)
[2020-06-01] MEDS: diphenhydrAMINE HCL 25 MG CAPSULE PO PRN ×2 (16:35→23:16)
[2020-06-01 19:02] VITALS: BP 110/74
[2020-06-01] MEDS: ALPRAZolam 0.5 MG TABLET PO SCH (20:49)
[2020-06-01] MEDS: LIDOCAINE (700MG/PATCH) PATCH. TP SCH (20:51)
[2020-06-01] MEDS ORDERED: rOPINIRole 2 MG TABLET. PO SCH (21:00)
[2020-06-01 22:16] VITALS: BP 117/79
[2020-06-02] MEDS: ALBUTEROL SULFATE 2.5 MG/3 ML NEBU. NEB SCH ×4 (05:15→15:10)
[2020-06-02] MEDS: LEVOTHYROXINE 112 MCG TABLET PO SCH (06:00)
[2020-06-02] MEDS: BUDESONIDE 0.5 MG/2 ML NEBU NEB SCH ×2 (08:00→09:25)
[2020-06-02] MEDS: OXYBUTYNIN CHLORIDE 5 MG TABLET PO SCH (08:02)
[2020-06-02] MEDS: PIOGLITAZONE 15 MG TABLET. PO SCH (08:02)
[2020-06-02] MEDS: ASPIRIN CHEWABLE 81 MG TABLET. PO SCH (08:03)
[2020-06-02] MEDS: PARoxetine 20 MG TABLET PO SCH (08:03)
[2020-06-02] MEDS: PANTOPRAZOLE 40 MG TABLET. PO SCH (08:03)
[2020-06-02] MEDS: GLIMEPIRIDE 2 MG TABLET PO SCH ×2 (08:03→17:16)
[2020-06-02] MEDS: ATORVASTATIN CALCIUM 20 MG TABLET PO SCH (08:03)
[2020-06-02] MEDS: CARVEDILOL 6.25 MG TABLET PO SCH ×2 (08:03→17:16)
[2020-06-02] MEDS: metFORMIN 500 MG TABLET PO SCH ×2 (08:03→17:16)
[2020-06-02] MEDS: buPROPion XL 300 MG TAB.ER.24H. PO SCH (08:04)
[2020-06-02] MEDS: FLUTICASONE 50MCG/NASAL SPRAY 16GM BOTTLE. NS SCH (08:04)
[2020-06-02] MEDS ORDERED: FLUTICASONE 50MCG/NASAL SPRAY 16GM BOTTLE. NS PRN (08:45)
[2020-06-02] MEDS: METHOCARBAMOL 500 MG TABLET PO PRN ×2 (08:49→17:16)
--- NOTE | 2020-06-02 09:00 | NUR ---
Pt c/o RLe pain and spasticity. Robaxin given.
[2020-06-02 09:58] VITALS: BP 120/50
--- NOTE | 2020-06-02 11:00 | NUR ---
Pt still c/o pain RLE. Morphine given IVP.
[2020-06-02 11:05] VITALS: BP 122/83
[2020-06-02] MEDS: diphenhydrAMINE HCL 25 MG CAPSULE PO PRN (11:36)
[2020-06-02] MEDS: MORPHINE SULFATE 4 MG/ML DISP.SYRIN. IV PRN ×2 (11:36→17:17)
--- NOTE | 2020-06-02 15:11 | DS ---
DATE OF DISCHARGE: 06/02/2020 ATTENDING PHYSICIAN: Dr. Cook. FINAL DISCHARGE DIAGNOSES: 1. Degenerative arthritis. 2. Longstanding cerebral palsy. 3. Inability to care for self. 4. Frequent falls. 5. Hypothyroidism, on replacement. 6. Morbid obesity. 7. Deconditioning. 8. Type 2 diabetes. 9. Chronic low back pain. HISTORY AND PHYSICAL: This is a 49-year-old female with severe debilitation, cerebral palsy and inability to care for self. She has tried being on the years with a combination of home health friends, a service dog and other social remedies to maintain her independence. She was admitted through the ED with inability to care for self, friends brought her in. PHYSICAL EXAMINATION: Please see the dictated note. PERTINENT LABORATORY AND X-RAY STUDIES: Admission hemoglobin is stable at 10.5 g/dL, white count 8900. Chemistry panel was unremarkable. Her old potassium was spuriously high at 6.2. Her blood sugars were adequate during this hospitalization and managed in the low 100s. Hip and knee film showed no acute fractures identified, nor dislocation. COURSE IN THE HOSPITAL: The patient was admitted. Home meds were restarted, pain control, social sciences chair saw her, arrangements were made for discharge to Inpatient Facility in [place], [place]. They were able to take her. There were no changes on her home medication. She will be discharged then with the following meds: She will continue her alprazolam 1 mg at bedtime, aspirin 81 mg daily, Lipitor, bupropion, Coreg 6.25 mg b.i.d., diltiazem 240 SR daily, fluticasone, Amaryl 4 mg b.i.d., Synthroid 112 mcg daily, Lidoderm patch daily, metformin 1000 b.i.d., Robaxin p.r.n., oxybutynin, Protonix, Paxil 40 mg, Actos and ropinirole. We held her meloxicam. I did write a script for hydrocodone 10/325 one every 6 hours as needed for pain. Her prognosis is guarded. She was discharged then from our hospital in stable condition with explicit instructions and followup care. SHELDON COOK MD DR: TOMEKA/betzaida JOB#: [id number] / [id number]
[2020-06-02 15:54] VITALS: BP 112/75
[2020-06-02 17:16] VITALS: BP 112/75
--- NOTE | 2020-06-02 17:30 | NUR ---
Pt to be [facility]. C/o pain. Robaxin and Morphine given. Pt up to for anticipated transfer.
--- NOTE | 2020-06-02 18:13 | NUR ---
Transition Record was faxed to follow-up provider with the following elements: Reason for admission, procedures, tests, principal diagnosis, pending studies, patient instructions, 16/12 contact information for unit, phone number to obtain pending test results, plan for follow-up care, physician follow-up, advanced directive information, and medication list with dose, duration and instructions. This information was included in the following documents: History and physical, lab results, study results, progress notes, social work planning form, DC instruction form, patient visit summary, and medication reconciliation form. Date & time record faxed: [phone] 06/02/20 Record faxed to: [facility] Record discussed with/ report given to: interior design coordinator
== END 2020-06-02 18:51 | disposition home or self-care, planned readmission (81) ==
LOC: ER 11:11 → 1 SOUTH 11:56
PROVIDERS: ADMIT Hospitalist; ATTEND Hospitalist
DX: M19.90 Unspecified osteoarthritis, unspecified site (principal); Z20.828 Contact with and (suspected) exposure to other viral communicable diseases; G80.9 Cerebral palsy, unspecified; E03.9 Hypothyroidism, unspecified; E11.9 Type 2 diabetes mellitus without complications; E66.01 Morbid (severe) obesity due to excess calories; E78.00 Pure hypercholesterolemia, unspecified; E78.5 Hyperlipidemia, unspecified; G35 Multiple sclerosis; G89.29 Other chronic pain; H90.3 Sensorineural hearing loss, bilateral; I10 Essential (primary) hypertension; M17.0 Bilateral primary osteoarthritis of knee; M79.7 Fibromyalgia; R29.6 Repeated falls; Z79.82 Long term (current) use of aspirin; Z79.84 Long term (current) use of oral hypoglycemic drugs; Z79.899 Other long term (current) drug therapy; Z90.49 Acquired absence of other specified parts of digestive tract; Z98.890 Other specified postprocedural states; Z91.81 History of falling; Z68.43 Body mass index [BMI] 50.0-59.9, adult
CPT/HCPCS: 36415; 80048; 81001; 82947; 85025; 87077; 87086; 87186; 87426; 94640; 96374; 96375; 96376; 97110; 97163; 97166; 97530; 97535; 99284; G0378; J2270; J2920; J7613; Q0163; U0003; G0379

== ENCOUNTER 2021-01-14 22:25 | Emergency (ER) | payer MEDICARE ==
[~2021-01-14 22:25] MED LIST changes: +BUPR300T92 PO; +LEVO112T4 PO; +ROPI4TAB10 PO
[2021-01-14] MEDS ORDERED: ACETAMINOPHEN 500 MG TABLET PO ONE (22:45)
[2021-01-14] MEDS ORDERED: IBUPROFEN 600 MG TABLET. PO ONE (22:45)
--- NOTE | 2021-01-14 22:48 | PHYS DOC ---
Past History Past Medical History: Diabetes, Fibromyalgia, High Cholesterol, Hypertension, Other Additional Past Medical Histor: cerebral palsy, SVT, DEGENERATIVE DISC Past Surgical History: Cholecystectomy, Other Additional Past Surgical Histo: NUMEROUS CHILDHOOD SURGERIES FOR CP, RIGHT FOOT Alcohol Use: None Drug Use: None Adult General Chief Complaint Chief Complaint: MECHANICAL FALL HPI HPI Patient is a 50-year-old female who presents after tripping over in her wheelchair and falling onto her left side. States she has left-sided shoulder pain, 6 out of 10, dull and aching nature with no radiation and low back pain, 4 out of 10, dull and achy in nature with no radiation that is new. Denies any head injury, loss of consciousness, neck pain, chest pain, shortness of breath, abdominal pain, nausea, vomiting. Denies any numbness/weakness/tingling that is new. States she was mainly come into the emergency department but her family wanted her to. Review of Systems Review of Systems Review of systems otherwise unremarkable except noted in HPI Current Medications Current Medications Current Medications Medications (Trade) Dose Ordered Sig/Daniel Start Time Stop Time Status Last Admin Dose Admin Acetaminophen (Tylenol) 1,000 mg 1X ONCE 01/14/21 22:45 01/14/21 22:46 Ibuprofen (Motrin) 600 mg 1X ONCE 01/14/21 22:45 01/14/21 22:46 Allergies Allergies Allergies Coded Allergies Type Severity Reaction Last Updated Verified carbamazepine Allergy Intermediate Unknown 05/30/20 Yes ciprofloxacin Allergy Intermediate Unknown 05/30/20 Yes perflutren Allergy Intermediate Unknown 05/30/20 Yes tioconazole Allergy Intermediate Unknown 08/24/15 Yes vancomycin Allergy Intermediate 02/06/17 Yes silver sulfadiazine Allergy Unknown 05/16/20 Yes Physical Exam Physical Exam Constitutional: Well developed, well nourished, no acute distress, non-toxic appearance. [] HENT: Normocephalic, atraumatic, nose normal. [] Eyes: conjunctiva normal, no discharge. [] Neck: Normal range of motion, no tenderness, supple, no stridor. [] Cardiovascular:Heart rate regular rhythm, no murmur [] Lungs & Thorax: Bilateral breath sounds clear to auscultation [] Abdomen: Bowel sounds normal, soft, no tenderness, no masses, no pulsatile masses. [] Skin: Warm, dry, no erythema, no rash. [] Back: Mild lumbar paraspinal muscle tenderness bilaterally with no midline tenderness, step-offs or deformities noted. Extremities: Generalized left shoulder tenderness on passive range of motion with no obvious bruising, deformities. Neurovascular exam intact. Neurologic: Alert and oriented X 3, normal motor function, normal sensory function, no focal deficits noted. [] Psychologic: Affect normal, judgement normal, mood normal. [] EKG EKG [] Radiology/Procedures Radiology/Procedures [] TECHNIQUE: Helical CT imaging of the lumbar spine is performed without contrast. Findings: No acute fracture is identified. The vertebral body height and alignment are maintained. There is disc space narrowing and endplate spurring and vacuum disc phenomenon of L4/L5 and L5/S1 and T11/T12. The other disc spaces of the lumbar spine are maintained. Transverse processes are intact. The visualized sacroiliac joints are symmetric. L3/L4: There is minimal posterior disc bulge. There is moderate facet E. The central canal is patent. The neural foramina are patent. L4/L5: There is posterior disc osteophyte complex. There is mild facet hypertrophy and ligamentum flavum redundancy. Narrowing of the right lateral recess. No significant central canal stenosis. There is mild right and no sig nificant left neural foraminal narrowing. L5/S1: There is minimal posterior disc osteophyte complex. The central canal is adequate. There is mild bilateral neural foraminal narrowing. Limited visualization of the retroperitoneum is unremarkable. IMPRESSION: No acute fracture or malalignment of the lumbar spine. Electronically signed by: Geovanny Briones MD (01/14/2021 11:34 PM) [facility] XR CHEST 1V Clinical Indication: Reason: fall / Comparison: AP chest August 16, 2019. Findings: The cardiomediastinal silhouette is normal. Lungs are clear. There is no pneumothorax. No pleural effusion is appreciated. No acute bone abnormality. There is arthropathy of the right shoulder. IMPRESSION: No acute cardiopulmonary process. Electronically signed by: Geovanny Briones MD (01/15/2021 12:01 AM) BERRY LEFT SHOULDER , 3 VIEWS Clinical Indication: Reason: fall / Comparison: None. Findings: There is no acute fracture or dislocation. The acromioclavicular and glenohumeral joints are intact. There is arthropathy. The visualized lung is clear. There is no evidence of a displaced rib fracture. There is no soft tissue abnormality. IMPRESSION: No acute fracture or dislocation. Electronically signed by: Geovanny Briones MD (01/15/2021 12:00 AM) [facility] Heart Score C/O Chest Pain: No Risk Factors: Risk Factors: DM, Current or recent (<one month) smoker, HTN, HLP, family history of CAD, obesity. Risk Scores: Risk Factors: DM, Current or recent (<one month) smoker, HTN, HLP, family history of CAD, obesity. Course & Med Decision Making Course & Med Decision Making Patient is a 50-year-old female who presents with musculoskeletal complaints after tripping out of her wheelchair Vital signs notable for hypertension. Physical exam noted above. Patient given Tylenol and ibuprofen. Imaging with no acute osseous abnormalities. Discussed all findings with patient advised on pain management at home. Advised to follow-up in the morning with primary care physician to set up a follow-up visit. Gave return precautions to the ED. Patient grateful, verbalized understanding and agreed with plan of discharge. Dragon Disclaimer Dragon Disclaimer This electronic medical record was generated, in whole or in part, using a voice recognition dictation system. Departure Departure: Impression: Primary Impression: Fall Additional Impressions: Shoulder pain Back pain Disposition: 01 HOME / SELF CARE / HOMELESS Condition: GOOD Referrals: SERGIO SALES MD (PCP) Patient Instructions: RICE - Routine Care for Injuries Additional Instructions: Thank you for coming into the emergency department tonight and allowing us to take care of you. Please read all of the attached information carefully to go back over what we discussed. You can used Tylenol, ibuprofen and ice as needed and as tolerated. Please follow-up in the morning with your primary care physician to set up a follow-up visit. Please come back to the ED with new or concerning symptoms as discussed. Problem Qualifiers DENISSE MORAN MD Jan 14, 2021 22:48
--- NOTE | 2021-01-14 23:36 | RAD ---
PQRS Compliance Statement: One or more of the following individualized dose reduction techniques were utilized for this examinat ion: 1. Automated exposure control 2. Adjustment of the mA and/or kV according to patient size 3. Use of iterative reconstruction technique CT LUMBAR SPINE WO Clinical Indication: Reason: fall / Spl. Instructions: / History: Comparison: None. TECHNIQUE: Helical CT imaging of the lumbar spine is performed without contrast. Findings: No acute fracture is identified. The vertebral body height and alignment are maintained. There is dis c space narrowing and endplate spurring and vacuum disc phenomenon of L4/L5 and L5/S1 and T11/T12. Th e other disc spaces of the lumbar spine are maintained. Transverse processes are intact. The visualiz ed sacroiliac joints are symmetric. L3/L4: There is minimal posterior disc bulge. There is moderate facet E. The central canal is patent. The neural foramina are patent. L4/L5: There is posterior disc osteophyte complex. There is mild facet hypertrophy and ligamentum fla vum redundancy. Narrowing of the right lateral recess. No significant central canal stenosis. There i s mild right and no significant left neural foraminal narrowing. L5/S1: There is minimal posterior disc osteophyte complex. The central canal is adequate. There is mi ld bilateral neural foraminal narrowing. Limited visualization of the retroperitoneum is unremarkable. IMPRESSION: No acute fracture or malalignment of the lumbar spine. Electronically signed by: Geovanny Briones MD (01/14/2021 11:34 PM) [facility]
--- NOTE | 2021-01-15 00:03 | RAD ---
LEFT SHOULDER , 3 VIEWS Clinical Indication: Reason: fall / Comparison: None. Findings: There is no acute fracture or dislocation. The acromioclavicular and glenohumeral joints are intact. There is arthropathy. The visualized lung is clear. There is no evidence of a displaced rib fracture. There is no soft tissue abnormality. IMPRESSION: No acute fracture or dislocation. Electronically signed by: Geovanny Briones MD (01/15/2021 12:00 AM) [facility]
--- NOTE | 2021-01-15 00:04 | RAD ---
XR CHEST 1V Clinical Indication: Reason: fall / Comparison: AP chest August 16, 2019. Findings: The cardiomediastinal silhouette is normal. Lungs are clear. There is no pneumothorax. No pleural eff usion is appreciated. No acute bone abnormality. There is arthropathy of the right shoulder. IMPRESSION: No acute cardiopulmonary process. Electronically signed by: Geovanny Briones MD (01/15/2021 12:01 AM) [facility]
[2021-01-15 00:35] VITALS: BP 144/72
[2021-01-15] MEDS ORDERED: oxyCODONE IR 5 MG TABLET PO PRN (00:45)
== END 2021-01-15 02:05 | disposition home or self-care (01) ==
LOC: ER 22:25
DX: M25.512 Pain in left shoulder (principal); M54.5 Low back pain; E11.9 Type 2 diabetes mellitus without complications; M79.7 Fibromyalgia; E78.00 Pure hypercholesterolemia, unspecified; I10 Essential (primary) hypertension; Z88.1 Allergy status to other antibiotic agents; Z88.8 Allergy status to other drugs, medicaments and biological substances; W18.09XA Striking against other object with subsequent fall, initial encounter; Y93.89 Activity, other specified; Y92.89 Other specified places as the place of occurrence of the external cause; Y99.8 Other external cause status
CPT/HCPCS: 71045; 72131; 73030; 99284-25

== ENCOUNTER 2021-07-29 16:47 | Emergency (ER) | payer MEDICARE ==
[~2021-07-29] VITALS: Ht 157.5 cm; Wt 145.7 kg
[2021-07-29 17:11] VITALS: BP 113/76
--- NOTE | 2021-07-29 17:17 | PHYS DOC ---
Past History Past Medical History: Diabetes, Fibromyalgia, High Cholesterol, Hypertension, Other Additional Past Medical Histor: cerebral palsy, SVT, DEGENERATIVE DISC (SALLIE ESTES APRN) Past Surgical History: Cholecystectomy, Other Additional Past Surgical Histo: NUMEROUS CHILDHOOD SURGERIES FOR CP, RIGHT FOOT (SALLIE ESTES APRN) Alcohol Use: None Drug Use: None (SALLIE ESTES APRN) General Adult EDM: Chief Complaint: MECHANICAL FALL HPI: HPI: Patient is a 50-year-old female who presents to the emergency department via EMS for head injury that occurred at 11:00. Patient reports that she is wheelchair- bound due to history of cerebral palsy and she came home today for the first time in 5 months after being discharged home from a rehab facility. She reports that she uses transfer pulls to transfer herself to and from her wheelchair. She reports that one of them fell over and hit her on the left side of her head. She reports that the object weighed approximately 26 pounds. She is reporting pain to the left side of her head that she rates 8 out of 10. No treatment prior to arrival. Patient denies any loss of consciousness but reports that she "saw stars". Patient denies any vomiting, seizure-like activity, blood thinner use. (SALLIE ESTES APRN) Review of Systems: Review of Systems: Eyes: See HPI HENT: See HPI GI: See HPI Musculoskeletal: See HPI Neurologic: See HPI (SALLIE ESTES APRN) Allergies: Allergies: Allergies Coded Allergies Type Severity Reaction Last Updated Verified carbamazepine Allergy Intermediate Unknown 05/30/20 Yes ciprofloxacin Allergy Intermediate Unknown 05/30/20 Yes perflutren Allergy Intermediate Unknown 05/30/20 Yes tioconazole Allergy Intermediate Unknown 08/24/15 Yes vancomycin Allergy Intermediate 02/06/17 Yes silver sulfadiazine Allergy Unknown 05/16/20 Yes (SALLIE ESTES APRN) Physical Exam: PE: Constitutional: Well developed, well nourished, no acute distress, non-toxic appearance. [] HENT: Normocephalic, 2cm hematoma to l. top of head, bilateral external ears normal, oropharynx moist, no adams sign, no raccoon sign, no oral exudates, nose normal. [] Eyes: PERRL, 5 mm bilaterally, EOMI, conjunctiva normal, no discharge. [] Neck: Normal range of motion, no tenderness, supple, no stridor. [] Cardiovascular:Heart rate regular rhythm, no murmur [] Lungs & Thorax: Bilateral breath sounds clear to auscultation [] Abdomen: Bowel sounds normal, soft, no tenderness, obese, no masses, no pulsatile masses. [] Skin: Warm, dry, no erythema, no rash. [] Back: No tenderness Extremities: No tenderness, no cyanosis, no clubbing, ROM intact, no edema. [] Neurologic: Alert and oriented X 3, normal motor function, normal sensory function, no focal deficits noted. [] Psychologic: Affect normal, judgement normal, mood normal. [] (SALLIE ESTES APRN) EKG: EKG: [] (SALLIE ESTES APRN) Radiology/Procedures: Radiology/Procedures: []PROCEDURE: CT HEAD AND CERVICAL SPINE WO CT HEAD AND C-SPINE WO Date: 07/29/2021 5:14 PM Clinical Indication: Reason: head injury / Spl. Instructions: / History: Comparison: CT head from 10/19/2019. Technique: 5 mm axial tomographic images were obtained of the head without contrast. These were viewed on brain and bone windows. Noncontrast CT of the cervical spine was performed. Sagittal and coronal reformats were performed and evaluated. One or more of the following dose reduction techniques were utilized: Automated exposure control (AEC), Adjustment of mA and/or kV according to patient size, Use of iterative reconstruction technique such as ASiR, CT scan done according to ALARA and image gently/image wisely HEAD FINDINGS: The lateral ventricles are prominent but unchanged from priors. Similar probable old lacunar infarct in the left periventricular white matter. No mass effect, midline shift, hemorrhage, or extra-axial fluid collection, or obvious acute infarct is identified. Basilar cisterns are patent. Paranasal sinuses, mastoid air cells are clear. Review of the bone windows reveals no acute osseous abnormality. Soft tissues are grossly unremarkable. Orbits and globes are unremarkable. CERVICAL SPINE FINDINGS: Motion degrades evaluation of the cervical spine and upper lungs. The cervical spine is normally aligned. No acute fracture. No aggressive lytic or blastic osseous lesions. Mild multilevel degenerative disc space height loss. Multilevel mild spinal canal stenosis secondary to disc protrusions and marginal osteophytes. Multilevel mild neuroforaminal narrowing secondary to uncovertebral arthrosis. Multilevel mild facet arthrosis. The thyroid gland is normal. No cervical lymphadenopathy. Bilateral carotid atherosclerosis. The visualized aerodigestive tract is normal. The visualized portions of the lungs are clear. IMPRESSION: 1. No acute intracranial process. 2. No acute cervical spine fracture. Electronically signed by: Christina Graves DO (07/29/2021 5:56 PM) [facility] DICTATED AND SIGNED BY: CHRISTINA GRAVES DO DATE: 07/29/21 388 CC: SALLIE ESTES APRN; SERGIO SALES MD ~MTH0 0 (SALLIE ESTES APRN) Heart Score: C/O Chest Pain: N/A Risk Factors: Risk Factors: DM, Current or recent (<one month) smoker, HTN, HLP, family history of CAD, obesity. Risk Scores: Score 0 - 3: 2.5% MACE over next 6 weeks - Discharge Home Score 4 - 6: 20.3% MACE over next 6 weeks - Admit for Clinical Observation Score 7 - 10: 72.7% MACE over next 6 weeks - Early Invasive Strategies (SALLIE ESTES APRN) Course & Med Decision Making: Course & Med Decision Making Pertinent Labs and Imaging studies reviewed. (See chart for details) Patient presents to the emergency department for head injury that occurred at 11 :00. Imaging performed of patient's head and neck which showed no acute findings. Patient advised to take Tylenol and ibuprofen for her pain and apply ice. She was given pain medication in the emergency department prior to discharge. I discussed with patient all findings and diagnostic testing as well as the need to follow-up with PCP for further evaluation and treatment or ret urn to the ER if any new or worsening symptoms. Strict return precautions were also discussed at length. Patient voiced understanding and agreement with the plan. Patient is hemodynamically stable at the time of disposition. (SALLIE ESTES APRN) Course & Med Decision Making Did not see or evaluate patient. Did not discuss patient with LICENSING DIRECTOR. Generally agree with LICENSING DIRECTOR's work-up and disposition per note. (DENISSE MORAN MD) Dragon Disclaimer: Dragon Disclaimer: This electronic medical record was generated, in whole or in part, using a voice recognition dictation system. (SALLIE ESTES APRN) Departure Departure: Impression: Primary Impression: Head injury Qualified Codes: S09.90XA - Unspecified injury of head, initial encounter Disposition: HOME / SELF CARE / HOMELESS Condition: GOOD Referrals: SERGIO SALES MD (PCP) Patient Instructions: Head Injury, Adult Additional Instructions: You were seen in the emergency department today for head injury. Imaging was performed of your head and neck which showed no acute findings. Please take Tylenol and/ibuprofen for pain you can apply ice. Follow-up with your primary care provider tomorrow regarding your ER visit. Return to the emergency department if you develop worsening of your head pain, intractable nausea or vomiting, seizure-like activity, confusion, vision changes, speech changes or any new or worsening concerns. SALLIE ESTES APRN Jul 29, 2021 17:17 DENISSE MORAN MD Jul 29, 2021 19:07
[2021-07-29] MEDS ORDERED: ACETAMINOPHEN 325 MG TABLET PO ONE (17:30)
--- NOTE | 2021-07-29 17:59 | RAD ---
CT HEAD AND C-SPINE WO Date: 07/29/2021 5:14 PM Clinical Indication: Reason: head injury / Spl. Instructions: / History: Comparison: CT head from 10/19/2019. Technique: 5 mm axial tomographic images were obtained of the head without contrast. These were view ed on brain and bone windows. Noncontrast CT of the cervical spine was performed. Sagittal and nicole l reformats were performed and evaluated. One or more of the following dose reduction techniques were utilized: Automated exposure control (AEC), Adjustment of mA and/or kV according to patient size, Us e of iterative reconstruction technique such as ASiR, CT scan done according to ALARA and image gentl y/image wisely HEAD FINDINGS: The lateral ventricles are prominent but unchanged from priors. Similar probable old lacunar infarct in the left periventricular white matter. No mass effect, midline shift, hemorrhage, or extra-axial f luid collection, or obvious acute infarct is identified. Basilar cisterns are patent. Paranasal sinuses, mastoid air cells are clear. Review of the bone windows reveals no acute osseous a bnormality. Soft tissues are grossly unremarkable. Orbits and globes are unremarkable. CERVICAL SPINE FINDINGS: Motion degrades evaluation of the cervical spine and upper lungs. The cervic al spine is normally aligned. No acute fracture. No aggressive lytic or blastic osseous lesions. Mild multilevel degenerative disc space height loss. Multilevel mild spinal canal stenosis secondary to disc protrusions and marginal osteophytes. Multilevel mild neuroforaminal narrowing secondary to u ncovertebral arthrosis. Multilevel mild facet arthrosis. The thyroid gland is normal. No cervical lymphadenopathy. Bilateral carotid atherosclerosis. The visu alized aerodigestive tract is normal. The visualized portions of the lungs are clear. IMPRESSION: 1. No acute intracranial process. 2. No acute cervical spine fracture. Electronically signed by: Travis Graves DO (07/29/2021 5:56 PM) [facility]
== END 2021-07-29 18:42 | disposition home or self-care (01) ==
LOC: ER 16:47
DX: S00.83XA Contusion of other part of head, initial encounter (principal); E11.9 Type 2 diabetes mellitus without complications; M79.7 Fibromyalgia; E78.00 Pure hypercholesterolemia, unspecified; I10 Essential (primary) hypertension; Z99.3 Dependence on wheelchair; Z88.1 Allergy status to other antibiotic agents; Z88.8 Allergy status to other drugs, medicaments and biological substances; W18.39XA Other fall on same level, initial encounter; Y93.89 Activity, other specified; Y92.89 Other specified places as the place of occurrence of the external cause; Y99.8 Other external cause status
CPT/HCPCS: 70450; 72125; 99284

== ENCOUNTER 2021-08-20 10:20 | Emergency (ER) | payer MEDICARE ==
[~2021-08-20] VITALS: Ht 157.5 cm; Wt 145.7 kg
[2021-08-20] MEDS ORDERED: KETOROLAC 30 MG/ML VIAL. IM ONE (10:45)
[2021-08-20] MEDS ORDERED: METHOCARBAMOL 500 MG TABLET PO ONE (10:45)
[2021-08-20 11:35] VITALS: BP 112/72
--- NOTE | 2021-08-20 11:42 | RAD ---
Exam: XR LEFT HIP (WITH OR WITHOUT PELVIS) 2 VIEWS, XR FEMUR_LEFT 1 VIEW History: Fall. Hip/lower leg pain. Recent hip repair and femur fracture. Comparison: Left hip radiographs 02/13/2021. Findings: Osseous mineralization is normal. There is fixation of a left intertrochanteric hip fracture with dyn amic compression screw and intramedullary nail the femur. Subacute proximal left femur fracture. The pubic rami are intact. The distal femur is within normal limits. Mild degenerative changes the right hip. Intrauterine device projects in the pelvis. Degenerative changes of the lower lumbar spine. Impression: 1. Healing intertrochanteric left femur and proximal left femoral diaphysis fractures status post in tramedullary nail and dynamic compression screw fixation. No acute findings. Electronically signed by: David Cho MD (08/20/2021 11:40 AM) [id number]
--- NOTE | 2021-08-20 11:58 | PHYS DOC ---
Past History Past Medical History: Diabetes, Fibromyalgia, High Cholesterol, Hypertension, Other Additional Past Medical Histor: cerebral palsy, SVT, DEGENERATIVE DISC (WILLEM MENDEZ) Past Surgical History: Cholecystectomy, Other Additional Past Surgical Histo: NUMEROUS CHILDHOOD SURGERIES FOR CP, RIGHT FOOT,left hip (WLILEM MENDEZ) Alcohol Use: None Drug Use: None (WILLEM MENDEZ) General Adult EDM: Chief Complaint: MECHANICAL FALL HPI: HPI: Patient is a 50 year old female who presents with left lower extremity pain. Patient states she was attempting to transfer from her bed into a chair nearby, when she had mechanical difficulty doing so. At that time, she decided to slide onto the floor and attempt to get herself in her chair from that position. She states that her left leg bent towards her chest in a way that caused her significant discomfort. Patient had an ORIF done to her left hip in January 2021, after which she was in a rehab facility for 5 months. During that surgical repair, they did break her left femur, causing her left leg to be slightly shorter than the right. Patient complains of pain in her left hip as well as the lateral side of her left lower leg extending to the calf with certain movements. Patient denies any high-impact trauma or fall, paresthesias or open wounds. 2 days ago, patient states she was having diarrheal episodes most of the day, which is consistent with her history of IBS. She states she was transferring frequently between her bed and the toilet and had to take 2 showers. Since that time, she has felt slightly more tired from physical exertion. (WILLEM MENDEZ) Review of Systems: Review of Systems: Constitutional: Denies fever, chills or generalized weakness Eyes: Denies change in visual acuity, visual field deficits or discharge HENT: Denies ear pain, nasal congestion or sore throat Respiratory: Denies cough or shortness of breath Cardiovascular: Denies chest pain, palpitations or edema GI: Denies abdominal pain, nausea, vomiting, bloody stools or diarrhea : Denies dysuria or hematuria Musculoskeletal: See HPI Integument: Denies rash or other skin lesion Neurologic: Denies headache, focal weakness or sensory changes (WILLEM MENDEZ) Current Medications: Current Meds: Current Medications Medications (Trade) Dose Ordered Sig/Daniel Start Time Stop Time Status Last Admin Dose Admin Ketorolac Tromethamine (Toradol 30mg Vial) 30 mg 1X ONCE 08/20/21 10:45 08/20/21 10:48 DC 08/20/21 11:21 30 MG Methocarbamol (Robaxin) 500 mg 1X ONCE 08/20/21 10:45 08/20/21 10:48 DC 08/20/21 11:20 500 MG (WILLEM MENDEZ) Allergies: Allergies: Allergies Coded Allergies Type Severity Reaction Last Updated Verified carbamazepine Allergy Intermediate Unknown 05/30/20 Yes ciprofloxacin Allergy Intermediate Unknown 05/30/20 Yes perflutren Allergy Intermediate Unknown 05/30/20 Yes tioconazole Allergy Intermediate Unknown 08/24/15 Yes vancomycin Allergy Intermediate 02/06/17 Yes silver sulfadiazine Allergy Unknown 05/16/20 Yes amiodarone Adverse Reaction Unknown Chest pain, head pain, neck pain 08/20/21 Yes (WILLEM MENDEZ) Physical Exam: PE: Constitutional: Morbidly obese, no acute distress, non-toxic appearance. HENT: Normocephalic, atraumatic, bilateral external ears normal, oropharynx moist, nose normal. Eyes: EOMI, conjunctiva normal, no discharge. Neck: Normal range of motion, no stridor. Skin: Warm, dry, no erythema, no rash, good skin turgor. Extremities: No bony tenderness, no cyanosis, no clubbing, active ROM intact though painful with foot inversion, no edema, DP pulses 2+ and symmetrical. Neurologic: Alert and oriented x4, no focal deficits noted. (WILLEM MENDEZ) Current Patient Data: Vital Signs: Vital Signs Date Time Temp Pulse Resp B/P (MAP) Pulse Ox O2 Delivery O2 Flow Rate FiO2 08/20/21 11:35 88 20 112/72 (85) 100 Room Air 08/20/21 10:26 98.1 77 18 113/76 (88) 97 Room Air (WILLEM MENDEZ) Radiology/Procedures: Radiology/Procedures: Exam: XR LEFT HIP (WITH OR WITHOUT PELVIS) 2 VIEWS, XR FEMUR_LEFT 1 VIEW History: Fall. Hip/lower leg pain. Recent hip repair and femur fracture. Comparison: Left hip radiographs 02/13/2021. Findings: Osseous mineralization is normal. There is fixation of a left intertrochanteric hip fracture with dynamic compression screw and intramedullary nail the femur. Subacute proximal left femur fracture. The pubic rami are intact. The distal femur is within normal limits. Mild degenerative changes the right hip. Intrauterine device projects in the pelvis. Degenerative changes of the lower lumbar spine. Impression: 1. Healing intertrochanteric left femur and proximal left femoral diaphysis fractures status post intramedullary nail and dynamic compression screw fixation. No acute findings. Electronically signed by: David Cho MD (08/20/2021 11:40 AM) [id number] (WILLEM MENDEZ) Heart Score: C/O Chest Pain: No (WILLEM MENDEZ) Course & Med Decision Making: Course & Med Decision Making Pertinent Labs and Imaging studies reviewed. (See chart for details) Patient is a 50-year-old female in overall poor health who presents with left lower extremity pain that is concerning for muscle strain versus refracture. Plain films obtained left lower extremity hip to tib-fib. Plain films today do not reveal any acute osseous injuries. She will be treated for muscle strain related to issues and transport to her chair today. Patient was advised to continue physical therapy at home and follow closely with her orthopedist. Return precautions were provided. Patient understands and is agreeable to discharge plan (WILLEM MENDEZ) Dragon Disclaimer: Dragon Disclaimer: This electronic medical record was generated, in whole or in part, using a voice recognition dictation system. (WILLEM MENDEZ) Departure Departure: Impression: Primary Impression: Strain of left knee and leg Qualified Codes: S86.912A - Strain of unspecified muscle(s) and tendon(s) at lower leg level, left leg, initial encounter Additional Impressions: History of open reduction and internal fixation (ORIF) procedure History of femur fracture Disposition: HOME / SELF CARE / HOMELESS Condition: STABLE Referrals: SERGIO SALES MD (PCP) Patient Instructions: Hip Fracture, Open Reduction and Internal Fixation (ORIF), Muscle Strain, Nyrn-in-Cnvy Additional Instructions: EMERGENCY DEPARTMENT GENERAL DISCHARGE INSTRUCTIONS Thank you for coming to [facility] ([facility]) today and trusting us with you care. We trust that you had a positive experience in our Emergency Department. If you wish to speak to the department management, you may call the director at [phone]. YOUR FOLLOW UP INSTRUCTIONS ARE FOLLOWS: 1. Follow up with your primary care doctor. If you do not have a primary doctor, please ask for a resource list of physicians or clinics that may be able to assist you with follow up care. 2. The emergency provider has interpreted your imaging studies, if any were ordered. The radiology outside event sales specialist also reviewed them. If there is a change in the findings, you will be notified in 48 hours when at all possible. 3. If a lab test or culture has been done, your results will be reviewed and you will be notified if you need a change in treatment. 4. Continue PT/rehab excercises at home as scheduled. Follow instructions verbalized to you and refer to the printouts if needed. ADDITIONAL INSTRUCTIONS AND INFORMATION: 1. Your care today has been supervised by a physician who is specially trained in emergency care. Many problems require more than one evaluation for a complete diagnosis and treatment. We recommend that you schedule your follow up appointment as recommended to ensure complete treatment of you illness or injury. If you are unable to obtain follow up care and continue to have a prob morgan, or if your condition worsens, we recommend that you return to the ED. 2. We are not able to safely determine your condition over the phone nor are we able to give sound medical advice over the phone. For these safety reasons, if you call for medical advice we will ask you to come to the ED for further evaluation. 3. If you have any questions regarding these discharge instructions please call the ED at [phone]. SAFETY INFORMATION: In the interest of safety, wellness, and injury prevention; we encourage you to wear your seat belt, if you smoke; quite smoking, and we encourage family to use a protective helmet for bicycling and other sporting events that present an increased risk for head injury. IF YOUR SYMPTOMS WORSEN OR NEW SYMPTOMS DEVELOP, OR YOU HAVE CONCERNS ABOUT YOUR CONDITION; OR IF YOUR CONDITION WORSENS WHILE YOU ARE WAITING FOR YOUR FOLLOW UP APPOINTMENT; EITHER CONTACT YOUR PRIMARY CARE DOCTOR, THE PHYSICIAN WHOSE NAME AND NUMBER YOU WERE GIVEN, OR RETURN TO THE ED IMMEDIATELY. Attending Signature I have participated in the care of this patient and I have reviewed and agree with all pertinent clinical information above including history, exam, and recommendations. (DENISSE LIU DO) WILLEM MENDEZ Aug 20, 2021 11:58 DENISSE LIU DO Aug 20, 2021 15:16
--- NOTE | 2021-08-20 12:08 | RAD ---
Exam: XR LT TIBIA + FIBULA History: Mechanical fall. Hip and lower leg pain. Comparison: None. Findings: Decreased osseous mineralization. No fracture or dislocation. Mild degenerative changes of the left k nee. Dystrophic calcifications overlying the posterior left distal Achilles tendon. No focal soft tis bernie swelling. Impression: 1. No acute osseous abnormality in the left tibia and fibula. Electronically signed by: David Cho MD (08/20/2021 12:05 PM) [id number]
== END 2021-08-20 12:34 | disposition home or self-care (01) ==
LOC: ER 10:20
DX: S86.912A Strain of unspecified muscle(s) and tendon(s) at lower leg level, left leg, initial encounter (principal); E11.9 Type 2 diabetes mellitus without complications; M79.7 Fibromyalgia; E78.00 Pure hypercholesterolemia, unspecified; I10 Essential (primary) hypertension; Z88.8 Allergy status to other drugs, medicaments and biological substances; Z88.1 Allergy status to other antibiotic agents; W18.39XA Other fall on same level, initial encounter; Y93.89 Activity, other specified; Y92.89 Other specified places as the place of occurrence of the external cause; Y99.8 Other external cause status
CPT/HCPCS: 73502; 73552; 73590; 96372; 99284; J1885

== ENCOUNTER 2021-09-10 10:07 | Emergency (ER) | payer MEDICARE ==
[~2021-09-10] VITALS: Ht 154.9 cm; Wt 113.0 kg
--- NOTE | 2021-09-10 10:37 | PHYS DOC ---
Past History Past Medical History: Diabetes, Fibromyalgia, High Cholesterol, Hypertension, Other Additional Past Medical Histor: cerebral palsy, SVT, DEGENERATIVE DISC (SALLIE ESTES APRN) Past Surgical History: Cholecystectomy, Other Additional Past Surgical Histo: NUMEROUS CHILDHOOD SURGERIES FOR CP, RIGHT FOOT,left hip (SALLIE ESTES APRN) Alcohol Use: None Drug Use: None (SALLIE ESTES APRN) General Adult EDM: Chief Complaint: MECHANICAL FALL HPI: HPI: Patient is a 50-year-old female who presents to the emergency department via EMS following a fall. Patient reports that just prior to ER arrival she was trying to transfer from her bed to a wheelchair when she fell onto her left side. Patient is reporting left hip and leg pain. She rates her pain 8 out of 10. No treatment prior to arrival. Patient reports that she broke her left hip and had a hip replacement and has a jacey in her femur and she just wants to make sure that the hardware is still intact. Patient states that she had a "controlled fall". She denies hitting her head, loss of consciousness or any increased neck or back pain. Patient has a history of cerebral palsy and does have right-sided weakness and receives home health. She denies any blood thinner use. (SALLIE ESTES APRN) Review of Systems: Review of Systems: HENT: See HPI Musculoskeletal: See HPI Integument: See HPI Neurologic: See HPI (SALLIE ESTES APRN) Allergies: Allergies: Allergies Coded Allergies Type Severity Reaction Last Updated Verified carbamazepine Allergy Intermediate Unknown 09/10/21 Yes ciprofloxacin Allergy Intermediate Unknown 09/10/21 Yes perflutren Allergy Intermediate Unknown 09/10/21 Yes tioconazole Allergy Intermediate Unknown 09/10/21 Yes vancomycin Allergy Intermediate 09/10/21 Yes silver sulfadiazine Allergy Unknown 09/10/21 Yes amiodarone Adverse Reaction Unknown Chest pain, head pain, neck pain 08/20/21 Yes (SALLIE ESTES APRN) Physical Exam: PE: Constitutional: Well developed, well nourished, no acute distress, non-toxic appearance. [] HENT: Normocephalic, atraumatic, bilateral external ears normal, oropharynx moist, no oral exudates, nose normal. [] Eyes: PERRL, EOMI, conjunctiva normal, no discharge. [] Neck: Normal range of motion, no bony spinal tenderness, no step-offs or deformities, supple, no stridor. [] Cardiovascular:Heart rate regular rhythm, no murmur [] Lungs & Thorax: Bilateral breath sounds clear to auscultation [] Abdomen: Bowel sounds normal, soft, no tenderness, no masses, obese, no pulsatile masses. [] Skin: Warm, dry, no erythema, no rash. [] Back: No tenderness Extremities: No tenderness, no cyanosis, no clubbing, ROM intact, no edema, brace on right foot left lower extremity: Surgical scarring noted to right hip, pain with palpation to left thigh and lateral aspect of left knee, no obvious deformity, no shortening or rotation, no ecchymosis or wounds, no joint laxity of her knee, range of motion is intact, neuro intact Neurologic: Alert and oriented X 3, normal motor function, normal sensory function, no focal deficits noted. [] Psychologic: Affect normal, judgement normal, mood normal. [] (SALLIE ESTES APRN) Current Patient Data: Vital Signs: Vital Signs Date Time Temp Pulse Resp B/P (MAP) Pulse Ox O2 Delivery O2 Flow Rate FiO2 09/10/21 10:24 98.2 72 18 129/72 (91) 99 Room Air (SALLIE ESTES APRN) EKG: EKG: [] (SALLIE ESTES APRN) Radiology/Procedures: Radiology/Procedures: []PROCEDURE: TIBIA FIBULA LEFT Left tibia and fibula 2 views, left hip 2 views with one view pelvis. HISTORY: Pain after a fall left tibia and fibula Left tibia and fibula AP and lateral views were taken of the left tibia and fibula. There is a fracture the proximal fibula with a cortex width of displacement on the lateral view. There is slight callous formation suggesting a subacute fracture. No other fracture is noted involving the left tibia or fibula. There is prominent calcification of the Achilles tendon suggesting prominent calcific tendinitis. Left hip with one view pelvis Single view was taken of the pelvis. Pelvis is intact without acute fracture. There is hypertrophic change in the lumbar spine. AP and lateral views were taken of the left hip. There is an intramedullary jacey in the femur. There is a hip nail to the femoral head in good position. There is a proximal femur fracture without change in alignment or position compared to the study from August 20. There is some callus formation but not mature bone along the posterior medial aspect of the fracture line. Intramedullary jacey and hip nail are unchanged. IMPRESSION: 1. No acute pelvic fracture. 2. Proximal femur fracture unchanged compared to the old study from July. 3. No new fracture at the left hip. 4. Intramedullary jacey and hip nail unchanged. 5. Proximal left fibular fracture slight callous. 6. Dense calcification the distal Achilles tendon. Electronically signed by: Neil Briones MD (09/10/2021 12:10 PM) [id number] DICTATED AND SIGNED BY: NEIL BRIONES MD DATE: 09/10/21 1207 CC: SALLIE ESTES APRN; SERGIO SALES MD ~ (SALLIE ESTES APRN) Heart Score: C/O Chest Pain: N/A Risk Factors: Risk Factors: DM, Current or recent (<one month) smoker, HTN, HLP, family history of CAD, obesity. Risk Scores: Score 0 - 3: 2.5% MACE over next 6 weeks - Discharge Home Score 4 - 6: 20.3% MACE over next 6 weeks - Admit for Clinical Observation Score 7 - 10: 72.7% MACE over next 6 weeks - Early Invasive Strategies (SALLIE ESTES APRN) Course & Med Decision Making: Course & Med Decision Making Pertinent Labs and Imaging studies reviewed. (See chart for details) [] Patient presents to the emergency department after a fall while trying to transfer from her bed to her wheelchair. Patient has cerebral palsy so she does have right-sided weakness and had a left hip replacement and a jacey placed in the femur and therefore has difficulty transferring into is in a wheelchair at home. Patient denies hitting her head or loss of consciousness. She denies any increased neck or back pain. Imaging performed of patient's left hip and pelvis, femur, knee and tib-fib. There is no abnormality seen patient's hardwa re from hip replacement. There are no acute fractures but the radiologist does read a subacute fracture of the tib-fib. I ordered splint placement for patient.. Patient advised to follow-up with orthopedic. Patient's pain was treated in the emergency department. She is advised to take Tylenol and ibuprofen at home for pain and follow-up with her primary care provider. I discussed with patient all findings and diagnostic testing as well as the need to follow-up with PCP for further evaluation and treatment or return to the ER if any new or worsening symptoms. Strict return precautions were also discussed at length. Patient voiced understanding and agreement with the plan. Patient is hemodynamically stable at the time of disposition. After discussing findings with patient. She reports that she already knew she had a broken fibula and she has already seen orthopedic doctor who told her that she did not need a surgery or splint and that it was a nonweightbearing bone and she could follow-up with him as needed. Patient states that she presented to the emergency department because she continues to have pain in her left lower leg and she fell today and wanted to have a new x-ray. Patient is requesting a splint for comfort. LACQUER SIZER entered patient's room to place a splint and she refused stating that she does not want her leg to be immobilized like that. We advised her to follow-up with her orthopedic doctor and she did acknowledge that. (SALLIE ESETS APRN) Dragon Disclaimer: Valerie Disclaimer: This electronic medical record was generated, in whole or in part, using a voice recognition dictation system. (SALLIE ESTES APRN) Departure Departure: Impression: Primary Impression: Fall Qualified Codes: W19.XXXA - Unspecified fall, initial encounter Disposition: HOME / SELF CARE / HOMELESS Condition: GOOD Referrals: SERGIO SALES MD (PCP) LAVERNE PANIAGUA II, MD Patient Instructions: Fall Prevention and Home Safety Additional Instructions: You were seen in the emergency department following a fall. Imaging was performed of your left hip, femur, knee showed no acute fracture. However you are seen to have a subacute fracture of your tib-fib, we advised splint placement which he refused. You will need to follow-up with the orthopedic doct ors in the orthopedic clinic as soon as possible. Please see attached information regarding follow-up physician. You should perform range of motion exercises to prevent stiffness of your joints. You should use ice and elevation to help with the swelling and pain. For the first 24 hours apply ice 20 minutes on 20 minutes off 4 times per day. You may take NSAID medications (Tyle nol, ibuprofen, naproxen) to help with the pain. Please return to the emergency department if you develop any of the following symptoms: Increasing pain that does not improve with treatments. New numbness or tingling Increasing inability to move your extremity or digits. Fevers or chills Nausea or vomiting Persistent lightheadedness We would be happy to see you for any other concerning symptoms regarding your splinted extremity. Attending Signature Attending Signature I have reviewed the PA/PSYCHIATRY RESIDENT's note and plan of care. I was available for consultation as needed during the patient's visit in the emergency department. I agree with the clinical impression, plan, and disposition. (KAILEE LAI DO) SALLIE ESTES [employer]LE [employer]IVING SUPERINTENDENT Sep 10, 2021 10:37 KAILEE LAI DO Sep 10, 2021 13:36
--- NOTE | 2021-09-10 12:04 | RAD ---
EXAMINATION: XR FEMUR_LEFT 1 VIEW, XR KNEE _3 VIEWS_LT. HISTORY: 50 years Female Reason: fall, pain COMPARISON: August 12, 2021. FINDINGS: Left femur views: Please note that the hip joint and at the proximal femur is not well included in the [id number]. T he femur demonstrate an intramedullary nail with mildly displaced fracture at the midshaft again demo nstrated similar to the previous exam. No acute fracture. Left knee views demonstrate mild degenerative changes in the knee joint. There is a subacute the mini miladys displaced fracture in the proximal fibula shaft with the callus formation seen. No acute fractu re. IMPRESSION: Left femur views: Stable a mid the left femur shaft fracture and intramedullary nail with good alignm ent. The hip joint and proximal femur is not included on this exam. Left knee views: Subacute proximal fibular shaft fracture with callus formation, not seen on the previous exam. Consid er repeat imaging of the tibia and fibula, and the left ankle clinically indicated. Electronically signed by: Saúl Martino MD (09/10/2021 12:01 PM) [id number]
--- NOTE | 2021-09-10 12:13 | RAD ---
Left tibia and fibula 2 views, left hip 2 views with one view pelvis. HISTORY: Pain after a fall left tibia and fibula Left tibia and fibula AP and lateral views were taken of the left tibia and fibula. There is a fracture the proximal fibula with a cortex width of displacement on the lateral view. There is slight callous formation suggestin g a subacute fracture. No other fracture is noted involving the left tibia or fibula. There is promin ent calcification of the Achilles tendon suggesting prominent calcific tendinitis. Left hip with one view pelvis Single view was taken of the pelvis. Pelvis is intact without acute fracture. There is hypertrophic c hange in the lumbar spine. AP and lateral views were taken of the left hip. There is an intramedullary jacey in the femur. There i s a hip nail to the femoral head in good position. There is a proximal femur fracture without change in alignment or position compared to the study from August 20. There is some callus formation but not mature bone along the posterior medial aspect of the fracture line. Intramedullary jacey and hip nail a re unchanged. IMPRESSION: 1. No acute pelvic fracture. 2. Proximal femur fracture unchanged compared to the old study from July. 3. No new fracture at the left hip. 4. Intramedullary jacey and hip nail unchanged. 5. Proximal left fibular fracture slight callous. 6. Dense calcification the distal Achilles tendon. Electronically signed by: Neil Briones MD (09/10/2021 12:10 PM) [id number]
[2021-09-10] MEDS ORDERED: HYDROcodone/APAP 5/325MG 1 TAB TABLET PO ONE (12:15)
[2021-09-10 12:45] VITALS: BP 132/72
== END 2021-09-10 12:52 | disposition home or self-care (01) ==
LOC: ER 10:07
DX: M79.652 Pain in left thigh (principal); M79.672 Pain in left foot; M25.552 Pain in left hip; E11.9 Type 2 diabetes mellitus without complications; M79.7 Fibromyalgia; E78.00 Pure hypercholesterolemia, unspecified; I10 Essential (primary) hypertension; Z96.642 Presence of left artificial hip joint; Z88.1 Allergy status to other antibiotic agents; Z88.8 Allergy status to other drugs, medicaments and biological substances; W18.39XA Other fall on same level, initial encounter; Y93.89 Activity, other specified; Y92.89 Other specified places as the place of occurrence of the external cause; Y99.8 Other external cause status
CPT/HCPCS: 73502; 73552; 73562; 73590; 99284